=== PATIENT | female | born 1930 | race Caucasian/White ===

== ENCOUNTER 2019-08-26 08:21 | Inpatient (IN) ==
--- NOTE | 2019-08-26 08:47 | Emergency Department Note ---
Impression & Plan Weakness, Acute dyspnea, Transaminitis, Elevated troponin, Thrombocytopenia ED Provider Note Provider: Isai High MD DATE OF SERVICE: 08/26/2019 CHIEF COMPLAINT: Weakness, shortness of breath HISTORY OF PRESENT ILLNESS: Patient is a 89-year-old female with a reported history of diabetes, chronic kidney disease, and cardiac valve issue presenting via helicopter from the scene in [place]. Patient was evidently they are camping with daughter and son-in-law at a family cabin. Evidently for the past several days she has been more fatigued maybe with some shortness of breath and not quite herself. Some mild ground-level fall is reported; the patient states that she was weak getting out of bed this morning and fell to the ground. She is unsure if she struck her head. Reports she may have had several other falls but unable to give specifics. Patient also does reportedly have a history of some dementia. Report of nausea. Evidently at the scene the patient was hypoxic requiring nonrebreather. Brought via helicopter to the remoteness of the area. Patient doing all extremities and denies focal weakness. States some nausea and maybe a little bit of vague abdominal discomfort but unable to give specifics. States she has had a bit of cough little bit short of breath last several days but denies sick contact. Travel within the state. REVIEW OF SYSTEMS: A total of 10 review of systems was obtained and negative except as stated above in the HPI. PAST MEDICAL HISTORY: As noted above MEDICATIONS: Reviewed medication listings and includes SOCIAL HISTORY: Lives with daughter and son-in-law in [place], non-smoker PHYSICAL EXAM: GENERAL: alert and oriented in no acute distress on stretcher Head: normocephalic and atraumatic EYES: No injection, discharge or icterus. PERRL NECK: Trachea midline. Supple. ENT: Mucous membranes pink and moist. LUNGS: Airway patent. No retractions. Breath sounds clear with diminished base HEART: Regular rate and rhythm. No chest wall tenderness ABDOMEN: Soft and non-tender, without guarding or rebound. No masses BACK: No bilateral flank tenderness. SKIN: Acyanotic, warm, dry, without rashes EXTREMITIES: Without obvious deformity or significant tenderness. A few small healed abrasions on the bilateral shins are noted. No evidence of erythema. Trace pedal edema NEUROLOGICAL: No focal deficits. No aphasia. No facial droop or slurred speech. EKG: Normal sinus rhythm [address]pm. No PVC. No ST segment elevation or depression. Left axis. QTC of 496. CONTINUOUS CARDIAC MONITORING: was ordered and showed a heart rate of 82 bpm in normal sinus rhythm Patient's hypertension was referred to the hospitalist PDMP was checked without noted issue. GCS 15. HOSPITAL COURSE: 819 Patient was first seen and H&P performed. Received report from [employer] crew. [id number] Patient reassessed and updated. Patient was resting in bed and arousable with light touch. Contact precautions maintained. Updated the patient on findings and plan for admission for further care and management. She denies any chest pain at this time. Will order a dose of aspirin. Patient's laboratory studies and imaging reviewed. Differential includes Infection, dehydration, metabolic abnormality, hypo/hyperglycemia, electrolyte disturbance, anemia, hypoxia, cardiac sources, intracerebral event, toxicologic, neurologic, as well as other pathologies. IMPRESSION/MEDICAL DECISION MAKING: Patient presents with report of some weakness and report of shortness of breath at the scene. On room air here in no obvious distress. No focality exam and lower suspicion for acute CVA. Some report of fall or falls. Patient is not the best historian. Given this CT of the head and neck was obtained given the complaint of some nausea and may be some vague abdominal discomfort CT the abdomen pelvis is obtained as well as a CT of the chest. Patient does have chronic kidney disease and elevated creatinine and a noncontrast scan was obtai yulia. Basic labs were obtained as well as lactate and culture. Coronavirus testing was sent. With mild anemia and some leukopenia noted. Thrombocytopenia also noted. Creatinine of 1.88 noted unsure of baseline but could be consistent with her CKD. LFTs are elevated as well as the LDH. Urine without evidence of blood or signs of infection. CT the head without acute intracranial bleed or traumatic injury. CT of the cervical spine without acute traumatic injury. Chest x-ray question subacute versus chronic right-sided rib fractures. Troponin is mildly elevated unsure of chronic or related to demand. CT of the abdomen pelvis and chest with noting's of old remote right-sided rib fractures without acute traumatic injury. Some right renal atrophy moderate hydronephrosis and possible renal lesion. I informed the patient of this. Did note also on the CT of the chest no acute traumatic process with old healed rib fractures and a 1 cm irregular density in the right upper lobe. Patient about 90% on room air but placed on 2 L for comfort.respiratory distress. Resting in the room. Laboratory studies do show an elevated LDH but no evidence of pancreatitis. No significant bilirubin elevation. Doubt this is an obstructive transaminitis. Discussed with the patient updated her recommendation for admission which she was in agreement with. Still not been able to locate contact information for family at this time. Rapid COVID testing did return negative. Patient was given aspirin here and will avoid no believe further heparinization is indicated time especially in light of her thrombocytopenia. Do not see a clear infectious will defer further antibiotics to the inpatient team. DIAGNOSIS: Weakness, fall, elevated troponin, transaminitis, shortness of breath DISPOSITION: Admission Patient was agreeable with this plan. Past Med/Surg History Medical History (Updated 08/26/19 @ 14:26 by Isai High M.D.) Aortic valve stenosis Chronic pain syndrome CKD (chronic kidney disease) stage 3, GFR 30-59 ml/min Dementia Depression DJD (degenerative joint disease) GERD (gastroesophageal reflux disease) History of kidney stones HLD (hyperlipidemia) HTN (hypertension) NAFLD (nonalcoholic fatty liver disease) reported per PCP Office Neuropathy due to type 2 diabetes mellitus T2DM (type 2 diabetes mellitus) Surgical History (Updated 08/26/19 @ 13:01 by Riya Pringle PA-C) History of appendectomy History of breast biopsy History of hysterectomy History of shoulder replacement 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 Gavino Cochran Family History (Updated 08/26/19 @ 13:02 by Riya Pringle PA-C) Mother Diabetes Kidney disease Brother Lung cancer Sister Breast cancer Daughter Cancer Renal cell CA Son Cancer Renal Cell CA Social History Preferred Language: Pashto Communication Ability: Effective Case Sealer Required: No Beliefs That Will Affect Care: None Current Living Situation: Family Other Information That Helps Us Care for You: No Feels Safe at Home: Yes Safety Concerns: Feels Safe At This Time Smoking Status: Never smoker Hx Alcohol Use: No Hx Substance Use: No Home Meds Home Medications Medication Instructions Recorded Confirmed amlodipine 10 mg PO DAILY 08/26/19 08/26/19 aspirin 81 mg PO DAILY 08/26/19 08/26/19 atorvastatin 40 mg PO DAILY 08/26/19 08/26/19 carboxymethylcellulose sodium 1 drp OPHTHALMIC (EYE) QID 08/26/19 08/26/19 [Refresh Tears] celecoxib 200 mg PO DAILY 08/26/19 08/26/19 donepezil 10 mg PO DAILY 08/26/19 08/26/19 gabapentin 600 mg PO TID 08/26/19 08/26/19 hydrocodone-acetaminophen 1 tab PO DAILY 08/26/19 08/26/19 lorazepam 0.5 mg PO DAILY 08/26/19 08/26/19 magnesium oxide 400 mg PO DAILY 08/26/19 08/26/19 olmesartan 20 mg PO DAILY 08/26/19 08/26/19 omeprazole 10 mg PO DAILY 08/26/19 08/26/19 sertraline 150 mg PO DAILY 08/26/19 08/26/19 sitagliptin 100 mg PO DAILY 08/26/19 08/26/19 Results & Data (ED) Vital Signs Vital Signs - 24 hr 08/26/19 08:38 08/26/19 08:53 08/26/19 10:53 Temperature 37.4 C Temperature Source Oral Pulse Rate 80 Pulse Rate [Apical] 79 Respiratory Rate 18 18 Blood Pressure 132/67 Blood Pressure [Left Arm] 159/72 H Blood Pressure Mean 88 Blood Pressure Mean [Left Arm] 101 Pulse Oximetry 90 90 100 Oxygen Delivery Method Room Air Room Air Nasal Cannula Oxygen Flow Rate 2 Sepsis Recent Fever Within 48 Hours Yes Sepsis New/Unexplained Change in Mental Status No Sepsis Action Taken by Nursing No Action Required 08/26/19 12:00 08/26/19 14:00 Temperature Temperature Source Pulse Rate Pulse Rate [Apical] 70 72 Respiratory Rate 18 18 Blood Pressure Blood Pressure [Left Arm] 155/81 H 163/79 H Blood Pressure Mean Blood Pressure Mean [Left Arm] 105 107 Pulse Oximetry 100 97 Oxygen Delivery Method Nasal Cannula Nasal Cannula Oxygen Flow Rate 2 2 Sepsis Recent Fever Within 48 Hours Sepsis New/Unexplained Change in Mental Status Sepsis Action Taken by Nursing Laboratory Data Result diagrams: 08/26/19 08:35 08/26/19 08:35 Lab Results 08/26/19 08/26/19 08/26/19 Range/Units 08:35 08:35 08:35 WBC 3.00 L (4.8-10.8) K/uL RBC 4.12 L (4.2-5.4) M/uL Hgb 11.2 L (12.0-16.0) g/dL POC Hgb (12.0-16.0) g/dl Hct 33.9 L (37-47) % POC Hct (37-47) % MCV 82.3 (80-100) fL MCH 27.2 (25-34) pg MCHC 33.0 (32-36) g/dL RDW Std Deviation 43.2 (36.4-46.3) fL RDW Coeff of Mary 14.4 (11.5-14.5) % Plt Count 87 L (130-400) K/uL MPV 8.8 (7.4-10.4) fL Immature Gran % (Auto) 1.3 % Neut % (Auto) 81.7 % Lymph % (Auto) 7.7 % Coles % (Auto) 8.3 % Eos % (Auto) 0.3 % Baso % (Auto) 0.7 % Immature Gran # (Auto) 0.04 H (0.00-0.02) K/uL Neut # (Auto) 2.45 (1.4-6.5) K/uL Lymph # (Auto) 0.23 L (1.2-3.4) K/uL Coles # (Auto) 0.25 (0.11-0.59) K/uL Eos # (Auto) 0.01 (0-0.5) K/uL Baso # (Auto) 0.02 (0-0.2) K/uL Platelet Estimate Decreased L (Normal) PT 11.5 (9.0-12.0) Seconds INR 1.1 (0.9-1.1) POC Sodium (135-144) mmol/L Sodium 135 L (136-145) mmol/L POC Potassium (3.3-5.0) mmol/L Potassium 3.9 (3.5-5.1) mmol/L POC Chloride (101-112) mmol/L Chloride 102 (98-107) mmol/L Carbon Dioxide 25 (21-32) mmol/L POC Total CO2 (24-31) mmol/L Anion Gap 7.0 (3-11) POC Anion Gap (16-25) mmol/L POC BUN (7-18) mg/dl BUN 26 H (7-18) mg/dl Creatinine 1.88 H (0.6-1.2) mg/dl POC Creatinine (0.6-1.3) mg/dl Est Cr Clr Drug Dosing 22.4 ml/min Est GFR ( Amer) 27.0 Est GFR (Non-Af Amer) 23.3 BUN/Creatinine Ratio 13.6 (10-20) Glucose 212 H (70-99) mg/dl POC Glucose (other) (70-99) mg/dl Lactate (0.4-2.0) mmol/L Calcium 8.4 L (8.5-10.1) mg/dl POC Ioniz Calcium Mica (1.12-1.32) mmol/l Magnesium 1.8 (1.8-2.4) mg/dl Ferritin 127.6 (8-388) ng/ml Total Bilirubin 1.2 H (0.2-1) mg/dl AST 983 H (15-37) U/L ALT 694 H (12-78) U/L Alkaline Phosphatase 165 H (45-117) U/L Lactate Dehydrogenase (84-246) U/L Total Creatine Kinase (26-192) U/L Troponin I 0.075 H* (0-0.045) ng/ml Total Protein 6.9 (6.4-8.2) gm/dl Albumin 2.8 L (3.4-5.0) gm/dl Globulin 4.1 H (2.5-4.0) gm/dl Albumin/Globulin Ratio 0.7 L (0.9-2) Lipase 233 (73-393) U/L TSH 1.380 (0.300-4.500) uIu/ml Urine Color Urine Appearance (Clear) Urine pH (4.5-7.5) Ur Specific [place] (1.000-1.030) Urine Protein (Negative) Urine Glucose (UA) (Negative) Urine Ketones (Negative) Urine Blood (Negative) Urine Nitrite (Negative) Urine Bilirubin (Negative) Urine Urobilinogen (Negative) Ur Leukocyte Esterase (Negative) Urine WBC (Auto) (0-5) /hpf Urine RBC (Auto) (0-4) /hpf U Hyaline Cast (Auto) (0-5) /lpf U Epithel Cells (Auto) (0-5) /lpf Urine Bacteria (Auto) (Negative) COVID-19 PCR (Negative) SARS-CoV-2 RNA (RT-PCR) 08/26/19 08/26/19 08/26/19 Range/Units 08:35 08:35 08:35 WBC (4.8-10.8) K/uL RBC (4.2-5.4) M/uL Hgb (12.0-16.0) g/dL POC Hgb (12.0-16.0) g/dl Hct (37-47) % POC Hct (37-47) % MCV (80-100) fL MCH (25-34) pg MCHC (32-36) g/dL RDW Std Deviation (36.4-46.3) fL RDW Coeff of Mary (11.5-14.5) % Plt Count (130-400) K/uL MPV (7.4-10.4) fL Immature Gran % (Auto) % Neut % (Auto) % Lymph % (Auto) % Coles % (Auto) % Eos % (Auto) % Baso % (Auto) % Immature Gran # (Auto) (0.00-0.02) K/uL Neut # (Auto) (1.4-6.5) K/uL Lymph # (Auto) (1.2-3.4) K/uL Coles # (Auto) (0.11-0.59) K/uL Eos # (Auto) (0-0.5) K/uL Baso # (Auto) (0-0.2) K/uL Platelet Estimate (Normal) PT (9.0-12.0) Seconds INR (0.9-1.1) POC Sodium (135-144) mmol/L Sodium (136-145) mmol/L POC Potassium (3.3-5.0) mmol/L Potassium (3.5-5.1) mmol/L POC Chloride (101-112) mmol/L Chloride (98-107) mmol/L Carbon Dioxide (21-32) mmol/L POC Total CO2 (24-31) mmol/L Anion Gap (3-11) POC Anion Gap (16-25) mmol/L POC BUN (7-18) mg/dl BUN (7-18) mg/dl Creatinine (0.6-1.2) mg/dl POC Creatinine (0.6-1.3) mg/dl Est Cr Clr Drug Dosing ml/min Est GFR ( Amer) Est GFR (Non-Af Amer) BUN/Creatinine Ratio (10-20) Glucose (70-99) mg/dl POC Glucose (other) (70-99) mg/dl Lactate 0.9 (0.4-2.0) mmol/L Calcium (8.5-10.1) mg/dl POC Ioniz Calcium Mica (1.12-1.32) mmol/l Magnesium (1.8-2.4) mg/dl Ferritin (8-388) ng/ml Total Bilirubin (0.2-1) mg/dl AST (15-37) U/L ALT (12-78) U/L Alkaline Phosphatase (45-117) U/L Lactate Dehydrogenase 1295 H (84-246) U/L Total Creatine Kinase 99 (26-192) U/L Troponin I (0-0.045) ng/ml Total Protein (6.4-8.2) gm/dl Albumin (3.4-5.0) gm/dl Globulin (2.5-4.0) gm/dl Albumin/Globulin Ratio (0.9-2) Lipase (73-393) U/L TSH (0.300-4.500) uIu/ml Urine Color Urine Appearance (Clear) Urine pH (4.5-7.5) Ur Specific [place] (1.000-1.030) Urine Protein (Negative) Urine Glucose (UA) (Negative) Urine Ketones (Negative) Urine Blood (Negative) Urine Nitrite (Negative) Urine Bilirubin (Negative) Urine Urobilinogen (Negative) Ur Leukocyte Esterase (Negative) Urine WBC (Auto) (0-5) /hpf Urine RBC (Auto) (0-4) /hpf U Hyaline Cast (Auto) (0-5) /lpf U Epithel Cells (Auto) (0-5) /lpf Urine Bacteria (Auto) (Negative) COVID-19 PCR (Negative) SARS-CoV-2 RNA (RT-PCR) 08/26/19 08/26/19 08/26/19 Range/Units 08:37 08:45 08:45 WBC (4.8-10.8) K/uL RBC (4.2-5.4) M/uL Hgb (12.0-16.0) g/dL POC Hgb 11.9 L (12.0-16.0) g/dl Hct (37-47) % POC Hct 35 L (37-47) % MCV (80-100) fL MCH (25-34) pg MCHC (32-36) g/dL RDW Std Deviation (36.4-46.3) fL RDW Coeff of Mary (11.5-14.5) % Plt Count (130-400) K/uL MPV (7.4-10.4) fL Immature Gran % (Auto) % Neut % (Auto) % Lymph % (Auto) % Coles % (Auto) % Eos % (Auto) % Baso % (Auto) % Immature Gran # (Auto) (0.00-0.02) K/uL Neut # (Auto) (1.4-6.5) K/uL Lymph # (Auto) (1.2-3.4) K/uL Coles # (Auto) (0.11-0.59) K/uL Eos # (Auto) (0-0.5) K/uL Baso # (Auto) (0-0.2) K/uL Platelet Estimate (Normal) PT (9.0-12.0) Seconds INR (0.9-1.1) POC Sodium 135 (135-144) mmol/L Sodium (136-145) mmol/L POC Potassium 4.0 (3.3-5.0) mmol/L Potassium (3.5-5.1) mmol/L POC Chloride 100 L (101-112) mmol/L Chloride (98-107) mmol/L Carbon Dioxide (21-32) mmol/L POC Total CO2 23 L (24-31) mmol/L Anion Gap (3-11) POC Anion Gap 17.0 (16-25) mmol/L POC BUN 24 H (7-18) mg/dl BUN (7-18) mg/dl Creatinine (0.6-1.2) mg/dl POC Creatinine 1.7 H (0.6-1.3) mg/dl Est Cr Clr Drug Dosing ml/min Est GFR ( Amer) Est GFR (Non-Af Amer) BUN/Creatinine Ratio (10-20) Glucose (70-99) mg/dl POC Glucose (other) 224 H (70-99) mg/dl Lactate (0.4-2.0) mmol/L Calcium (8.5-10.1) mg/dl POC Ioniz Calcium Mica 1.18 (1.12-1.32) mmol/l Magnesium (1.8-2.4) mg/dl Ferritin (8-388) ng/ml Total Bilirubin (0.2-1) mg/dl AST (15-37) U/L ALT (12-78) U/L Alkaline Phosphatase (45-117) U/L Lactate Dehydrogenase (84-246) U/L Total Creatine Kinase (26-192) U/L Troponin I (0-0.045) ng/ml Total Protein (6.4-8.2) gm/dl Albumin (3.4-5.0) gm/dl Globulin (2.5-4.0) gm/dl Albumin/Globulin Ratio (0.9-2) Lipase (73-393) U/L TSH (0.300-4.500) uIu/ml Urine Color Yellow Urine Appearance Clear (Clear) Urine pH 5.5 (4.5-7.5) Ur Specific [place] 1.019 (1.000-1.030) Urine Protein 3+ H (Negative) Urine Glucose (UA) Negative (Negative) Urine Ketones Negative (Negative) Urine Blood Negative (Negative) Urine Nitrite Negative (Negative) Urine Bilirubin Negative (Negative) Urine Urobilinogen Negative (Negative) Ur Leukocyte Esterase Negative (Negative) Urine WBC (Auto) 1-5 (0-5) /hpf Urine RBC (Auto) 0-4 (0-4) /hpf U Hyaline Cast (Auto) 1-5 (0-5) /lpf U Epithel Cells (Auto) 20-30 H (0-5) /lpf Urine Bacteria (Auto) Negative (Negative) COVID-19 PCR (Negative) SARS-CoV-2 RNA (RT-PCR) Cancelled 08/26/19 Range/Units 08:45 WBC (4.8-10.8) K/uL RBC (4.2-5.4) M/uL Hgb (12.0-16.0) g/dL POC Hgb (12.0-16.0) g/dl Hct (37-47) % POC Hct (37-47) % MCV (80-100) fL MCH (25-34) pg MCHC (32-36) g/dL RDW Std Deviation (36.4-46.3) fL RDW Coeff of Mary (11.5-14.5) % Plt Count (130-400) K/uL MPV (7.4-10.4) fL Immature Gran % (Auto) % Neut % (Auto) % Lymph % (Auto) % Coles % (Auto) % Eos % (Auto) % Baso % (Auto) % Immature Gran # (Auto) (0.00-0.02) K/uL Neut # (Auto) (1.4-6.5) K/uL Lymph # (Auto) (1.2-3.4) K/uL Coles # (Auto) (0.11-0.59) K/uL Eos # (Auto) (0-0.5) K/uL Baso # (Auto) (0-0.2) K/uL Platelet Estimate (Normal) PT (9.0-12.0) Seconds INR (0.9-1.1) POC Sodium (135-144) mmol/L Sodium (136-145) mmol/L POC Potassium (3.3-5.0) mmol/L Potassium (3.5-5.1) mmol/L POC Chloride (101-112) mmol/L Chloride (98-107) mmol/L Carbon Dioxide (21-32) mmol/L POC Total CO2 (24-31) mmol/L Anion Gap (3-11) POC Anion Gap (16-25) mmol/L POC BUN (7-18) mg/dl BUN (7-18) mg/dl Creatinine (0.6-1.2) mg/dl POC Creatinine (0.6-1.3) mg/dl Est Cr Clr Drug Dosing ml/min Est GFR ( Amer) Est GFR (Non-Af Amer) BUN/Creatinine Ratio (10-20) Glucose (70-99) mg/dl POC Glucose (other) (70-99) mg/dl Lactate (0.4-2.0) mmol/L Calcium (8.5-10.1) mg/dl POC Ioniz Calcium Mica (1.12-1.32) mmol/l Magnesium (1.8-2.4) mg/dl Ferritin (8-388) ng/ml Total Bilirubin (0.2-1) mg/dl AST (15-37) U/L ALT (12-78) U/L Alkaline Phosphatase (45-117) U/L Lactate Dehydrogenase (84-246) U/L Total Creatine Kinase (26-192) U/L Troponin I (0-0.045) ng/ml Total Protein (6.4-8.2) gm/dl Albumin (3.4-5.0) gm/dl Globulin (2.5-4.0) gm/dl Albumin/Globulin Ratio (0.9-2) Lipase (73-393) U/L TSH (0.300-4.500) uIu/ml Urine Color Urine Appearance (Clear) Urine pH (4.5-7.5) Ur Specific [place] (1.000-1.030) Urine Protein (Negative) Urine Glucose (UA) (Negative) Urine Ketones (Negative) Urine Blood (Negative) Urine Nitrite (Negative) Urine Bilirubin (Negative) Urine Urobilinogen (Negative) Ur Leukocyte Esterase (Negative) Urine WBC (Auto) (0-5) /hpf Urine RBC (Auto) (0-4) /hpf U Hyaline Cast (Auto) (0-5) /lpf U Epithel Cells (Auto) (0-5) /lpf Urine Bacteria (Auto) (Negative) COVID-19 PCR NEGATIVE (Negative) SARS-CoV-2 RNA (RT-PCR) Administered Medications Discontinued Medications Aspirin (Aspirin) 324 mg PO NOW STA Stop: 08/26/19 10:10 Last Admin: 08/26/19 11:33 Dose: 324 mg Documented by: [id number] Discharge Plan Visit Data Chief Complaint: Illness Stated Complaint: sob/weakness ED Provider: Isai High Discharge Problem: Weakness, Acute dyspnea, Transaminitis, Elevated troponin, Thrombocytopenia Forms Stand Alone Forms: My [facility] Prescriptions Prescriptions: No Action sitagliptin 100 mg Tablet 100 mg PO DAILY RF: 0 gabapentin 600 mg Tablet 600 mg PO TID RF: 0 celecoxib 200 mg Capsule 200 mg PO DAILY RF: 0 hydrocodone-acetaminophen 5-300 mg Tablet 1 tab PO DAILY RF: 0 lorazepam 1 mg Tablet 0.5 mg PO DAILY RF: 0 donepezil 10 mg Tablet 10 mg PO DAILY RF: 0 sertraline 100 mg Tablet 150 mg PO DAILY RF: 0 amlodipine 5 mg Tablet 10 mg PO DAILY RF: 0 atorvastatin 40 mg Tablet 40 mg PO DAILY RF: 0 omeprazole 10 mg capsule,delayed release(DR/EC) 10 mg PO DAILY RF: 0 magnesium oxide 400 mg magnesium tablet 400 mg PO DAILY RF: 0 aspirin 81 mg Tablet,Delayed Release (Dr/Ec) 81 mg PO DAILY RF: 0 Refresh Tears 0.5 % Drops 1 drp OPHTHALMIC (EYE) QID RF: 0 olmesartan 40 mg tablet 20 mg PO DAILY RF: 0
[2019-08-26 08:50] LABS: iSTAT Creatinine 1.7 mg/dl (0.6-1.3); iSTAT Hemoglobin 11.9 g/dl (12.0-16.0); iSTAT Ionized Calcium 1.18 mmol/l (1.12-1.32)
[2019-08-26 08:59] LABS: INR 1.1 (0.9-1.1); Prothrombin Time 11.5 Seconds (9.0-12.0)
[2019-08-26 09:02] LABS: Appearance Urine Clear (Clear); Bacteria Urine Automated Negative (Negative); Bilirubin Urine Negative (Negative); Blood Urine Negative (Negative); Color Urine Yellow; Epithelial Cell Urine Auto 20-30 /lpf (0-5); Glucose Urine UA Negative (Negative); Ketones Urine Negative (Negative); Leukocyte Esterase Urine Negative (Negative); Nitrite Urine Negative (Negative); Protein Urine 3+ (Negative); RBC Urine Automated 0-4 /hpf (0-4); Specific Gravity Urine 1.019 (1.000-1.030); Urobilinogen Urine Negative (Negative); pH Urine 5.5 (4.5-7.5)
[2019-08-26 09:05] LABS: Albumin Level 2.8 gm/dl (3.4-5.0); BUN Creatinine Ratio 13.6 (10-20); Calcium 8.4 mg/dl (8.5-10.1); Creatinine Clr Calc Pharmacy 22.4 ml/min; Est GFR (Non-African American) 23.3; Magnesium 1.8 mg/dl (1.8-2.4); Potassium 3.9 mmol/L (3.5-5.1)
--- NOTE | 2019-08-26 09:05 | XRay Report ---
XR chest 1V portable HISTORY: 89 years-old Female weakness acute chest trauma status post fall. Acute weakness. COMPARISON: None TECHNIQUE: Portable AP view of the chest FINDINGS: Cardiac silhouette is enlarged. Aortic valvular endograft. Calcified plaque the thoracic aortic arch. Mild interstitial coarsening is likely on a chronic basis. No definite pneumothorax, pleural effusio n or overt pulmonary edema. Right shoulder total joint arthroplasty. Degenerative changes of the left shoulder and spine. There are multiple right-sided rib fractures notably involving the posterolatera l right fifth through ninth ribs which appear to be subacute versus chronic. IMPRESSION: 1. Cardiomegaly without acute process. 2. Multiple subacute or chronic right-sided rib fractures. ACT 112: Negative or not required by law. The above report was generated using voice recognition software. It may contain grammatical, syntax o r spelling errors. Electronically signed by: Bud Gusman M.D. 08/26/2019 9:04 AM
[2019-08-26 09:11] LABS: Basophils # (auto) 0.02 K/uL (0-0.2); Basophils % (auto) 0.7 %; Eosinophils # (auto) 0.01 K/uL (0-0.5); Eosinophils % (auto) 0.3 %; Hematocrit (blood only) 33.9 % (37-47); Hemoglobin 11.2 g/dL (12.0-16.0); Immature Granulocytes # (auto) 0.04 K/uL (0.00-0.02); Immature Granulocytes % (auto) 1.3 %; Lymphocytes # (auto) 0.23 K/uL (1.2-3.4); Lymphocytes % (auto) 7.7 %; Mean Corpuscular Hemoglobin 27.2 pg (25-34); Mean Corpuscular Volume 82.3 fL (80-100); Mean Platelet Volume 8.8 fL (7.4-10.4); Monocytes # (auto) 0.25 K/uL (0.11-0.59); Monocytes % (auto) 8.3 %; Neutrophils # (auto) 2.45 K/uL (1.4-6.5); Neutrophils % (auto) 81.7 %; Platelet Count 87 K/uL (130-400); Platelet Estimate Decreased (Normal); RDW Coefficient of Variation 14.4 % (11.5-14.5); RDW Standard Deviation 43.2 fL (36.4-46.3); Red Blood Count 4.12 M/uL (4.2-5.4)
--- NOTE | 2019-08-26 09:22 | CT Scan Report ---
HEAD CT NONCONTRAST CT DOSE: 729.78 mGycm HISTORY: fall TECHNIQUE: Multiaxial CT images of the head were performed without the use of intravenous contrast. A utomated exposure control was utilized for this study. A dose lowering technique was utilized adheri ng to the principles of ALARA. Comparison: None. Findings: The paranasal sinuses and mastoid air cells are clear. The calvarium and skull base are int act. There is no mass, hematoma, midline shift, acute infarct. White matter hypodensity is nonspecifi c but suggestive of microvascular ischemic change. The ventricles and sulci demonstrate mild age-rela shivani involutional changes. Impression: No acute intracranial abnormality. Atrophy and microvascular ischemic changes. ACT 112: Negative or not required by law. Electronically signed by: Darci Sharma M.D. 08/26/2019 9:21 AM
--- NOTE | 2019-08-26 09:27 | CT Scan Report ---
CT OF THE CERVICAL SPINE CLINICAL HISTORY: Neck pain status post trauma COMPARISON STUDY: No previous studies for comparison. CT DOSE: 418.06 mGycm TECHNIQUE: CT scan of the cervical spine was performed from the skull base to the thoracic inlet. Winnie ges are reviewed in the axial, sagittal, and coronal planes. IV contrast was not administered for thi s examination. A dose lowering technique was utilized adhering to the principles of ALARA. FINDINGS: The visualized portions of the lung apices reveal no evidence of pneumothorax. The prevertebral soft tissues are normal. No fractures or traumatic subluxations are visualized. There are advanced multilevel degenerative changes. 3.4 mm of anterolisthesis of C3 on C4 is likely d egenerative. 3.4 mm of retrolisthesis of C5 on C6 is likely degenerative. 3.1 mm of retrolisthesis of C6 on C7 is likely degenerative. There is severe spinal stenosis at the C5-6 level. IMPRESSION: 1. No evidence of acute fracture or traumatic subluxation 2. Advanced multilevel degenerative changes with multilevel spinal stenosis which is severe at the C5 -C6 level. ACT 112: Negative or not required by law. Electronically signed by: Gilberto Diaz M.D. 08/26/2019 9:26 AM
[2019-08-26 09:28] LABS: Albumin Globulin Ratio 0.7 (0.9-2); Bilirubin,Total 1.2 mg/dl (0.2-1); Ferritin 127.6 ng/ml (8-388); Globulin 4.1 gm/dl (2.5-4.0); Thyroid Stimulating Hormone 1.38 uIu/ml (0.300-4.500); Total Protein 6.9 gm/dl (6.4-8.2); Troponin I 0.075 ng/ml (0-0.045)
--- NOTE | 2019-08-26 09:32 | CT Scan Report ---
CT chest wo con CT DOSE: 513.95 mGycm HISTORY: fall TECHNIQUE: Multiaxial CT images of the chest were performed without contrast. A dose lowering techni que was utilized adhering to the principles of ALARA. COMPARISON: None. FINDINGS: Multiple old, healed right posterior rib fractures. No acute fractures identified within th e chest. There is a right total shoulder arthroplasty. Please refer to the same day abdomen and pelvi s CT for further evaluation of the abdominal structures. The spleen appears enlarged. No pleural or p ericardial effusions. Mild left basilar pleural thickening. No mediastinal or hilar lymphadenopathy. Normal caliber esophagus. Mild calcified plaque within the normal caliber thoracic aorta. There is a stent within the ascending thoracic aorta. The heart is mildly enlarged. No mediastinal hematoma. No pneumothorax. Punctate calcified granuloma within the left lung apex. Focal irregular density within the right upper lobe on image 68 which measures 1 cm. This could represent scarring or a pulmonary le ruiz. A few punctate calcified granuloma seen within the right lung. There are few scattered subcenti meter groundglass nodule seen within the right lung. Dominant groundglass nodule within the right low er lobe on image 153 measures 4 mm. IMPRESSION: 1. No acute traumatic process within the chest. 2. Old, healed right posterior rib fractures. 3. A focal 1 cm irregular density within the right upper lobe which could represent scarring or a pul monary lesion. A [address] follow-up recommended for further evaluation. 4. A few scattered subcentimeter groundglass nodule within the right lung with the largest measuring 4 mm. These also bear watching future examinations. 5. Additional findings as described above. ACT 112: Negative or not required by law. Electronically signed by: Darci Sharma M.D. 08/26/2019 9:31 AM
--- NOTE | 2019-08-26 09:37 | CT Scan Report ---
ABDOMEN AND PELVIS CT WITHOUT CONTRAST CT DOSE: 932.38 mGycm HISTORY: Acute generalized abdominal pain status post fall. Acute nausea. fall, nausea TECHNIQUE: Multiaxial CT images of the abdomen and pelvis were performed without contrast. A dose lo wering technique was utilized adhering to the principles of ALARA. COMPARISON STUDY: Chest CT of same day FINDINGS: Trace pleural effusions. Minimal bibasilar pleural calcifications. Minimal bibasilar dependent atelec tasis. No pneumatosis or pneumoperitoneum. Mitral annular and coronary arterial calcifications. Cardi omegaly. Partially imaged aortic valvular endograft. Spleen is enlarged measuring up to 14.7 cm. Mode rate generalized pancreatic atrophy. Cholecystectomy is likely postsurgical intrahepatic and extrahep atic biliary ductal dilation. Unremarkable appearance of the adrenal glands. Scattered calcified gran ulomata throughout the liver. Moderate atrophy of the right kidney with associated perinephric stranding. Moderate dilation of the renal collecting system and renal pelvis. Urothelial thickening of the renal pelvis is noted with jennifer ris and a partially calcified lesion which measures up to approximately 3.2 x 2.3 x 3.4 cm. Man cat heter noted within a decompressed urinary bladder lumen. Extensive calcified plaque the abdominal aor ta. Nonspecific periportal adenopathy. Mild nonspecific distal esophageal wall thickening. No bowel obstruction. Colonic diverticulosis with out acute diverticulitis. Mild fecal retention. Nonvisualization of the appendix. Tiny fat filled per iumbilical hernia. Tiny right lateral lower abdominal wall fat filled hernia is noted with diastases 1.2 cm. Degenerative changes of the spine, pelvis and hips. Healing subacute versus chronic right-ivan ed rib fractures. No acute fracture identified. Lumbar levoscoliosis. IMPRESSION: 1. No acute posttraumatic abnormality identified within the abdomen or pelvis. 2. No acute fracture. Multiple remote right-sided rib fractures are noted. 3. Moderate right-sided renal atrophy and moderate hydronephrosis is noted along with a partially maddie cified heterogeneous lesion centered within the renal pelvis. Debris within the renal pelvis is noted along with associated urothelial thickening. Findings are suggestive of a urothelial lesion and foll ow-up with urology consultation is needed. 4. Trace pleural effusions. 5. Splenomegaly. 6. Additional findings as above. ACT 112: Negative or not required by law. The above report was generated using voice recognition software. It may contain grammatical, syntax o r spelling errors. Electronically signed by: Bud Gusman M.D. 08/26/2019 9:36 AM
[2019-08-26] MEDS ORDERED: ASPIRIN CHEW 324 MG PO STA (10:09)
--- NOTE | 2019-08-26 12:31 | Communication Note ---
Date of Service: August 26, 2019 History and physical exam obtained by me. History significant for 89-year-old woman with CKD 3, DM 2, dementia, hypertension who presented with worsening generalized weakness for the past 2 days. History obtained from patient and daughter was at bedside. Family had been out in the cabin for about 1 week Also reported nausea, reduced urinary output, fever this morning and some shortness of breath. Notable history of worsening weakness over the past few months with falls FSH - Multiple family members that of different cancers. Physical exam, General: Elderly woman, alert, appears weak Eyes: PERRL, conjunctivae normal, not pale, anicteric sclerae, EOM intact bilaterally ENMT: External ear and nose normal, oropharynx normal Neck: Normal visual inspection, no swelling noted Respiratory: Normal respiratory effort, no respiratory distress, lungs clear to auscultation, no crackles and no wheezes Cardiovascular: Pulse is RRR. S1-2, no pedal edema Chest (Breasts): Chest: normal inspection of chest, mild tenderness over palpation of right lower rib cage and RUQ Gastrointestinal (Abdomen): Abdomen is not distended, soft, mild tenderness over RUQ and lower rib cage (likely related to previous rib fractures as patient reported she has been having the pain since her fall and rib fractures), no guarding, normal bowel sounds Musculoskeletal: No cyanosis or clubbing, no pedal edema Genitourinary: No CVA tenderness Skin: Some scab on right side of forehead (daughter reports patient usually picks on her skin) Neurologic: Alert and oriented to person, place and month, No focal weakness, sensation grossly intact, power is about 5/5 in both UE and 4/5 in both LE Psychiatric: Euthymic affect, no depressed affect Labs notable for WBC of 3, Hb of 11.2, Plt 87, Na of 135, Cr of 1.88, AST of 983, ALT 694, Alk P 165, LDH 1295, Trop 0.075 CXR show multiple subacute and chronic right sided rib fractures Abd/Pelvis CT show Moderate Rigth renal atrophy, mod hydronephrosis, 3.2x2.3x3.4cm lesion. Scattered calcified granulomata throughout the liver CT chest showed few scattered groundglass nodules in right lung, focal 1cm irregular density in RUL (?scarring) -Transaminitis -Thrombocytopenia -Fever, Shortness of breath -SABINE on CKD3 -Right renal lesion -Ambulatory dysfunction -Elevated troponin Elevated liver enzymes. Get RUQ [facility] consult Monitor liver enzymes Hold home atorvastatin for now Fever reported and shortness of breath Differentials also include Possible Community acquired pneumonia, rule out Tick borne illness. COVID19 negative Get blood cultures Start ceftriaxone and doxycycline Get Tick borne testing for lyme, anaplasma Concern for possible malignancy considering history and findings Get urology consult for evaluation of renal mass Will benefit from tissue diagnosis Elevated troponin. EKG does not show any ischemic changes. Will trend trop. Monitor EKG Telemetry monitoring Monitor SABINE on CKD with IVF Get records from PCP PT/OT eval Other plans as detailed in note by Riya Pringle PA-C
--- NOTE | 2019-08-26 12:51 | History & Physical Report ---
Date of Service August 26, 2019 Assessment & Plan (1) Acute hepatitis: (2) Fever: (3) SOB (shortness of breath): (4) Weakness: (5) Recurrent falls: (6) Thrombocytopenia: Patient with acute hepatitis on admission for unknown reason. INR 1.1. Lactic acid within norm. CK within norm. Patient was [place] a cabin and also lives in the [facility]. Tick Borne illness is on the differential, but very high LFTs for tick borne illness. Ordered tick borne panel. Start Doxy prophylactically pending Lyme, etc. Check Hepatitis panel. Recheck LFTs in AM. Continue to follow Platelets and H&H. Splenomegaly noted on CT Abd/Pelvis. Consult GI. RUQ US to further assess liver. Check Acetaminophen level. Blood cultures ordered. Fall precautions. PT/OT Hold atorvastatin for now. (7) Svgyz-gv-mevjhcr kidney injury: Patient with CKD III historically. Creatinine slightly worse than baseline. 1.5--> 1.88 today. Gentle IV Hydration. Continue to monitor I&Os. Possibly due to current illness. Check Urine culture. Hold Celebrex- feel that this likely should be discontinued on discharge. (8) Lesion of right [place] kidney: Strong family history of Renal Cell CA. Consult Urology for opinion regarding follow up. (9) Pulmonary lesion: (10) Ground glass opacity present on imaging of lung: Patient does not have history of tobacco use. Uncertain etiology of pulmonary 1 cm lesion. With ground glass opacity, fever, weakness, and SOB, will start IV CTX prophylactically as well for possible CAP. COVID negative. Continue PRN O2 to maintain SaO2 >88%. (11) Troponin level elevated: Possibly due to demand from other processes. Will trend and repeat EKG in AM. (12) T2DM (type 2 diabetes mellitus): Hold sitagliptin. Insulin protocol. (13) HTN (hypertension): Hold Olmesartan. Continue amlodipine. (14) Dementia: (15) GERD (gastroesophageal reflux disease): Continue omeprazole. (16) Cervical stenosis of spinal canal: Seems unlikely to be causing current symptoms. Follow up as needed as outpatient. Patient's daughter, Jonelle is ISAIAS. Phone number is [phone]. History of Present Illness Chief Complaint: SOB, weakness Primary Care Provider: NO PCP Patient is an 89 yo female with history of DM Type II, HTN, Dyslipidemia, CKD III, Nonalcoholic fatty liver disease, dementia, chronic pain syndrome, DM Neuropathy, GERD, and history of renal stone 2 years ago who presented to the ED via [facility] with SOB and weakness. She had a fall in February during which she broke 5 ribs. She was undergoing PT after that to help improve her strength. This was put on hold during COVID. Over the past 2 months, she has been progressively becoming more weak, but her daughter states that she has become incredibly weak over the past 24-48 hours. She was unable to get out of bed and fell x 2. She has been in [facility] at a very small camp of her granddaughter's for about 1 week, and she was flown here because they were unable to get an ambulance back to the camp. She has not had any cough or SOB until the past 24 hours. The patient was placed on nonrebreather by EMS on the way to the hospital but the patient is currently saturating well on room air. The patient is currently comfortable. She did have a fever of 103 F per her daughter this morning prior to EMS arrival. She was given 2 Tylenol at home which did bring the fever down. The patient has no history of hepatitis or transaminase elevation from fatty liver disease. Her daughter also noted that she hadn't been urinating regularly over the past 24 hours- decreased urination. No hematuria. Patient had a mild headache this morning, but none now. She had mild dizziness associated with some nausea but none now. No dysphagia, chest pain, abdominal pain, V/D/C, rash, or peripheral edema. Since admission, the patient was noted to have severely elevated LFTs, thrombocytopenia, elevated LDH, negative COVID, groundglass opacities in the right lung, and possible calcific right renal lesion. Prior right rib fractures were noted on Chest/abdomen CT's, but no acute bony findings. Head CT was negative for acute findings. C spine CT showed spinal stenosis and DDD. Troponin was mildly elevated, but no acute EKG changes suggesting ischemia. Last outpatient lab testing done 04/30/19 showed AST 9, ALT 6, Alk Phos 60, Platelets 197, Hgb 12.2, A1C 7.6, Creatinine 1.5. Allergies Allergy/AdvReac Type Severity Reaction Status Date / Time No Known Allergies Allergy Verified 08/26/19 16:55 Home Medications Home Medications Medication Instructions Recorded Confirmed Type amlodipine 10 mg PO DAILY 08/26/19 08/26/19 History aspirin 81 mg PO DAILY 08/26/19 08/26/19 History atorvastatin 40 mg PO DAILY 08/26/19 08/26/19 History carboxymethylcellulose sodium 1 drp OPHTHALMIC (EYE) QID 08/26/19 08/26/19 History [Refresh Tears] celecoxib 200 mg PO DAILY 08/26/19 08/26/19 History donepezil 10 mg PO DAILY 08/26/19 08/26/19 History gabapentin 600 mg PO TID 08/26/19 08/26/19 History hydrocodone-acetaminophen 1 tab PO DAILY 08/26/19 08/26/19 History lorazepam 0.5 mg PO DAILY 08/26/19 08/26/19 History magnesium oxide 400 mg PO DAILY 08/26/19 08/26/19 History olmesartan 20 mg PO DAILY 08/26/19 08/26/19 History omeprazole 10 mg PO DAILY 08/26/19 08/26/19 History sertraline 150 mg PO DAILY 08/26/19 08/26/19 History sitagliptin 100 mg PO DAILY 08/26/19 08/26/19 History Past Med/Surg History Medical History (Updated 08/26/19 @ 14:26 by Isai High M.D.) Aortic valve stenosis Chronic pain syndrome CKD (chronic kidney disease) stage 3, GFR 30-59 ml/min Dementia Depression DJD (degenerative joint disease) GERD (gastroesophageal reflux disease) History of kidney stones HLD (hyperlipidemia) HTN (hypertension) NAFLD (nonalcoholic fatty liver disease) reported per PCP Office Neuropathy due to type 2 diabetes mellitus T2DM (type 2 diabetes mellitus) Surgical History (Updated 08/26/19 @ 13:01 by Riya Pringle PA-C) History of appendectomy History of breast biopsy History of hysterectomy History of shoulder replacement 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 Gavino Cochran Family History (Updated 08/26/19 @ 13:02 by Riya Pringle PA-C) Mother Diabetes Kidney disease Brother Lung cancer Sister Breast cancer Daughter Cancer Renal cell CA Son Cancer Renal Cell CA Social History Preferred Language: Chilean Communication Ability: Effective Logging Shovel Operator Required: No Beliefs That Will Affect Care: None Current Living Situation: Family Other Information That Helps Us Care for You: No Feels Safe at Home: Yes Safety Concerns: Feels Safe At This Time Smoking Status: Never smoker Hx Alcohol Use: No Hx Substance Use: No Review of Systems Review of Systems: All systems reviewed & are unremarkable except as noted in HPI & below Physical Exam Physical Exam: See Dr. Dye's addendum for Physical Exam Results & Data Results & Data ([facility]) Vital Signs (Past 12 Hours) Vital Signs Temp Pulse Pulse Resp BP BP Pulse Ox 08/26/19 12:00 70 18 155/81 H 100 08/26/19 10:53 79 18 159/72 H 100 08/26/19 08:53 37.4 C 80 18 132/67 90 08/26/19 08:38 90 Laboratory Results Laboratory Results - last 24 hr 08/26/19 08/26/19 08/26/19 08:35 08:35 08:35 WBC 3.00 L RBC 4.12 L Hgb 11.2 L POC Hgb Hct 33.9 L POC Hct MCV 82.3 MCH 27.2 MCHC 33.0 RDW Std Deviation 43.2 RDW Coeff of Mary 14.4 Plt Count 87 L MPV 8.8 Immature Gran % (Auto) 1.3 Neut % (Auto) 81.7 Lymph % (Auto) 7.7 Moffat % (Auto) 8.3 Eos % (Auto) 0.3 Baso % (Auto) 0.7 Immature Gran # (Auto) 0.04 H Neut # (Auto) 2.45 Lymph # (Auto) 0.23 L Moffat # (Auto) 0.25 Eos # (Auto) 0.01 Baso # (Auto) 0.02 Platelet Estimate Decreased L PT 11.5 INR 1.1 POC Sodium Sodium 135 L POC Potassium Potassium 3.9 POC Chloride Chloride 102 Carbon Dioxide 25 POC Total CO2 Anion Gap 7.0 POC Anion Gap POC BUN BUN 26 H Creatinine 1.88 H POC Creatinine Est Cr Clr Drug Dosing 22.4 Est GFR ( Amer) 27.0 Est GFR (Non-Af Amer) 23.3 BUN/Creatinine Ratio 13.6 Glucose 212 H POC Glucose (other) Lactate Calcium 8.4 L POC Ioniz Calcium Mica Magnesium 1.8 Ferritin 127.6 Total Bilirubin 1.2 H AST 983 H ALT 694 H Alkaline Phosphatase 165 H Lactate Dehydrogenase Total Creatine Kinase Troponin I 0.075 H* Total Protein 6.9 Albumin 2.8 L Globulin 4.1 H Albumin/Globulin Ratio 0.7 L Lipase 233 TSH 1.380 Urine Color Urine Appearance Urine pH Ur Specific [place] Urine Protein Urine Glucose (UA) Urine Ketones Urine Blood Urine Nitrite Urine Bilirubin Urine Urobilinogen Ur Leukocyte Esterase Urine WBC (Auto) Urine RBC (Auto) U Hyaline Cast (Auto) U Epithel Cells (Auto) Urine Bacteria (Auto) COVID-19 PCR SARS-CoV-2 RNA (RT-PCR) 08/26/19 08/26/19 08/26/19 08:35 08:35 08:35 WBC RBC Hgb POC Hgb Hct POC Hct MCV MCH MCHC RDW Std Deviation RDW Coeff of Mary Plt Count MPV Immature Gran % (Auto) Neut % (Auto) Lymph % (Auto) [place] % (Auto) Eos % (Auto) Baso % (Auto) Immature Gran # (Auto) Neut # (Auto) Lymph # (Auto) Moffat # (Auto) Eos # (Auto) Baso # (Auto) Platelet Estimate PT INR POC Sodium Sodium POC Potassium Potassium POC Chloride Chloride Carbon Dioxide POC Total CO2 Anion Gap POC Anion Gap POC BUN BUN Creatinine POC Creatinine Est Cr Clr Drug Dosing Est GFR ( Amer) Est GFR (Non-Af Amer) BUN/Creatinine Ratio Glucose POC Glucose (other) Lactate 0.9 Calcium POC Ioniz Calcium Mica Magnesium Ferritin Total Bilirubin AST ALT Alkaline Phosphatase Lactate Dehydrogenase 1295 H Total Creatine Kinase 99 Troponin I Total Protein Albumin Globulin Albumin/Globulin Ratio Lipase TSH Urine Color Urine Appearance Urine pH Ur Specific [place] Urine Protein Urine Glucose (UA) Urine Ketones Urine Blood Urine Nitrite Urine Bilirubin Urine Urobilinogen Ur Leukocyte Esterase Urine WBC (Auto) Urine RBC (Auto) U Hyaline Cast (Auto) U Epithel Cells (Auto) Urine Bacteria (Auto) COVID-19 PCR SARS-CoV-2 RNA (RT-PCR) 08/26/19 08/26/19 08/26/19 08:37 08:45 08:45 WBC RBC Hgb POC Hgb 11.9 L Hct POC Hct 35 L MCV MCH MCHC RDW Std Deviation RDW Coeff of Mary Plt Count MPV Immature Gran % (Auto) Neut % (Auto) Lymph % (Auto) M[place]at % (Auto) Eos % (Auto) Baso % (Auto) Immature Gran # (Auto) Neut # (Auto) Lymph # (Auto) Moffat # (Auto) Eos # (Auto) Baso # (Auto) Platelet Estimate PT INR POC Sodium 135 Sodium POC Potassium 4.0 Potassium POC Chloride 100 L Chloride Carbon Dioxide POC Total CO2 23 L Anion Gap POC Anion Gap 17.0 POC BUN 24 H BUN Creatinine POC Creatinine 1.7 H Est Cr Clr Drug Dosing Est GFR ( Amer) Est GFR (Non-Af Amer) BUN/Creatinine Ratio Glucose POC Glucose (other) 224 H Lactate Calcium POC Ioniz Calcium Mica 1.18 Magnesium Ferritin Total Bilirubin AST ALT Alkaline Phosphatase Lactate Dehydrogenase Total Creatine Kinase Troponin I Total Protein Albumin Globulin Albumin/Globulin Ratio Lipase TSH Urine Color Yellow Urine Appearance Clear Urine pH 5.5 Ur Specific [place] 1.019 Urine Protein 3+ H Urine Glucose (UA) Negative Urine Ketones Negative Urine Blood Negative Urine Nitrite Negative Urine Bilirubin Negative Urine Urobilinogen Negative Ur Leukocyte Esterase Negative Urine WBC (Auto) 1-5 Urine RBC (Auto) 0-4 U Hyaline Cast (Auto) 1-5 U Epithel Cells (Auto) 20-30 H Urine Bacteria (Auto) Negative COVID-19 PCR SARS-CoV-2 RNA (RT-PCR) Cancelled 08/26/19 08:45 WBC RBC Hgb POC Hgb Hct POC Hct MCV MCH MCHC RDW Std Deviation RDW Coeff of Mary Plt Count MPV Immature Gran % (Auto) Neut % (Auto) Lymph % (Auto) Moffat % (Auto) Eos % (Auto) Baso % (Auto) Immature Gran # (Auto) Neut # (Auto) Lymph # (Auto) Moffat # (Auto) Eos # (Auto) Baso # (Auto) Platelet Estimate PT INR POC Sodium Sodium POC Potassium Potassium POC Chloride Chloride Carbon Dioxide POC Total CO2 Anion Gap POC Anion Gap POC BUN BUN Creatinine POC Creatinine Est Cr Clr Drug Dosing Est GFR ( Amer) Est GFR (Non-Af Amer) BUN/Creatinine Ratio Glucose POC Glucose (other) Lactate Calcium POC Ioniz Calcium Mica Magnesium Ferritin Total Bilirubin AST ALT Alkaline Phosphatase Lactate Dehydrogenase Total Creatine Kinase Troponin I Total Protein Albumin Globulin Albumin/Globulin Ratio Lipase TSH Urine Color Urine Appearance Urine pH Ur Specific [place] Urine Protein Urine Glucose (UA) Urine Ketones Urine Blood Urine Nitrite Urine Bilirubin Urine Urobilinogen Ur Leukocyte Esterase Urine WBC (Auto) Urine RBC (Auto) U Hyaline Cast (Auto) U Epithel Cells (Auto) Urine Bacteria (Auto) COVID-19 PCR NEGATIVE SARS-CoV-2 RNA (RT-PCR) Diagnostic Findings Abd/Pelvis CT: IMPRESSION: 1. No acute posttraumatic abnormality identified within the abdomen or pelvis. 2. No acute fracture. Multiple remote right-sided rib fractures are noted. 3. Moderate right-sided renal atrophy and moderate hydronephrosis is noted along with a partially calcified heterogeneous lesion centered within the renal pelvis. Debris within the renal pelvis is noted along with associated urothelial thickening. Findings are suggestive of a urothelial lesion and follow-up with urology consultation is needed. 4. Trace pleural effusions. 5. Splenomegaly. 6. Additional findings as above. Chest CT: IMPRESSION: 1. No acute traumatic process within the chest. 2. Old, healed right posterior rib fractures. 3. A focal 1 cm irregular density within the right upper lobe which could represent scarring or a pulmonary lesion. A [address] follow-up recommended for further evaluation. 4. A few scattered subcentimeter groundglass nodule within the right lung with the largest measuring 4 mm. These also bear watching future examinations. 5. Additional findings as described above. Head CT: Impression: No acute intracranial abnormality. Atrophy and microvascular ischemic changes. C-Spine CT: IMPRESSION: 1. No evidence of acute fracture or traumatic subluxation 2. Advanced multilevel degenerative changes with multilevel spinal stenosis which is severe at the C5-C6 level. Code Status & VTE Plan VTE Prophylaxis Plan VTE Prophylaxis will be ordered: Yes Supervising Physician Co-Signing Physician Notes History and physical exam obtained by me. History significant for 89-year-old woman with CKD 3, DM 2, dementia, hypertension who presented with worsening generalized weakness for the past 2 days. History obtained from patient and daughter was at bedside. [place] had [place] in the [place] about 1 week Also reported nausea, reduced urinary output, fever this morning and some shortness of breath. Notable history of worsening weakness over the past few months with falls FSH - Multiple family members that of different cancers. Physical exam, General: Elderly woman, alert, appears weak Eyes: PERRL, conjunctivae normal, not pale, anicteric sclerae, EOM intact bilaterally ENMT: External ear and nose normal, oropharynx normal Neck: Normal visual inspection, no swelling noted Respiratory: Normal respiratory effort, no respiratory distress, lungs clear to auscultation, no crackles and no wheezes Cardiovascular: Pulse is RRR. S1-2, no pedal edema Chest (Breasts): Chest: normal inspection of chest, mild tenderness over palpation of right lower rib cage and RUQ Gastrointestinal (Abdomen): Abdomen is not distended, soft, mild tenderness over RUQ and lower rib cage (likely related to previous rib fractures as patient reported she has been having the pain since her fall and rib fractures), no guarding, normal bowel sounds Musculoskeletal: No cyanosis or clubbing, no pedal edema Genitourinary: No CVA tenderness Skin: Some scab on right side of forehead (daughter reports patient usually picks on her skin) Neurologic: Alert and oriented to person, place and month, No focal weakness, sensation grossly intact, power is about 5/5 in both UE and 4/5 in both LE Psychiatric: Euthymic affect, no depressed affect Labs notable for WBC of 3, Hb of 11.2, Plt 87, Na of 135, Cr of 1.88, AST of 983, ALT 694, Alk P 165, LDH 1295, Trop 0.075 CXR show multiple subacute and chronic right sided rib fractures Abd/Pelvis CT show Moderate Rigth renal atrophy, mod hydronephrosis, 3.2x2.3x3.4cm lesion. Scattered calcified granulomata throughout the liver CT chest showed few scattered groundglass nodules in right lung, focal 1cm irregular density in RUL (?scarring) -Transaminitis -Thrombocytopenia -Fever, Shortness of breath -SABINE on CKD3 -Right renal lesion -Ambulatory dysfunction -Elevated troponin Elevated liver enzymes. Get RUQ USS GI consult Monitor liver enzymes Hold home atorvastatin for now Fever reported and shortness of breath Differentials also include Possible Community acquired pneumonia, rule out Tick borne illness. COVID19 negative Get blood cultures Start ceftriaxone and doxycycline Get Tick borne testing for lyme, anaplasma Concern for possible malignancy considering history and findings Get urology consult for evaluation of renal mass Will benefit from tissue diagnosis Elevated troponin. EKG does not show any ischemic changes. Will trend trop. Monitor EKG Telemetry monitoring Monitor SABINE on CKD with IVF Get records from PCP PT/OT eval Other plans as detailed in note by Riya Pringle PA-C
[2019-08-26] MEDS ORDERED: ACETAMINOPHEN 10MG/ML PEDIATRIC DOSING IV PRN (15:44)
[2019-08-26] MEDS ORDERED: VANCOMYCIN CONSULT ACTIVE PRN (15:48)
[2019-08-26] MEDS: cefTRIAXone SODIUM 2,000 MG in DEXTROSE 5% 50 ML IV SCH (16:00)
[2019-08-26] MEDS ORDERED: VANCOMYCIN HCL 1,000 MG in SODIUM CHLORIDE 0.9% 250 ML IV SCH ×2 (16:00→17:45)
[2019-08-26] MEDS ORDERED: AMLODIPINE BESYLATE 5 MG TAB PO STA ×2 (16:01→18:40)
[2019-08-26] MEDS ORDERED: ONDANSETRON INJ 2 MG/ML 2 ML VIAL ONE (16:08)
[2019-08-26] MEDS ORDERED: ONDANSETRON INJ 2 MG/ML 2 ML VIAL IV PRN ×2 (16:09→16:11)
[2019-08-26] MEDS ORDERED: LABETALOL HCL IV 5 MG/ML 20ML IV STA (16:16)
[2019-08-26] MEDS ORDERED: ACETAMINOPHEN IV ONE (16:30)
[2019-08-26] MEDS ORDERED: ACETAMINOPHEN 10MG/ML PEDIATRIC DOSING IV ONE (16:30)
[2019-08-26] MEDS ORDERED: DEXTROSE 50% 50 ML SYRINGE IV PRN (18:18)
[2019-08-26] MEDS ORDERED: GLUCAGON FOR INJ 1 MG VIAL SQ PRN (18:18)
[2019-08-26] MEDS ORDERED: CARBOHYDRATES FOR HYPOGLYCEMIA PO PRN (18:18)
[2019-08-26] MEDS ORDERED: GLUCOSE 40% GEL 15 GM TUBE PO PRN (18:18)
[2019-08-26] MEDS ORDERED: ACETAMINOPHEN 325 MG SUPP PR PRN (18:18)
[2019-08-26] MEDS ORDERED: GLUCOSE 10 TABS/TUBE PO PRN (18:18)
[2019-08-26] MEDS ORDERED: HydrALAZINE HCL 20 MG/ML VIAL IV PRN (18:45)
[2019-08-26] MEDS: SODIUM CHLORIDE 0.9% 1000ML 1,000 ML IV SCH (19:06)
[2019-08-26 19:27] LABS: Hepatitis B Surface Antigen Neg (Neg)
[2019-08-26 19:40] LABS: Lyme Ab IgG w/WB Rflx Negative (Negative); Lyme Ab IgM w/WB Rflx Negative (Negative)
[2019-08-26 19:56] LABS: Hepatitis C IgG 13Yrs+Old_Rflx Neg (Neg)
[2019-08-26] MEDS: GABAPENTIN 600 MG TAB PO SCH (20:37)
[2019-08-26] MEDS: DOXYCYCLINE HYCLATE 100 MG CAP PO SCH (20:37)
[2019-08-26] MEDS: INSULIN ASPART 100 UNITS/ML 3 ML PEN SC SCH (20:38)
[2019-08-26] MEDS ORDERED: HEPARIN SOD 5,000 UNIT/0.5 ML VIAL SQ SCH (21:00)
--- NOTE | 2019-08-26 23:14 | Electrocardiogram Report ---
Test Reason : Blood Pressure : / mmHG Vent. Rate : 091 BPM Atrial Rate : 091 BPM P-R Int : 178 ms QRS Dur : 092 ms QT Int : 404 ms P-R-T Axes : 075 -33 075 degrees QTc Int : 496 ms Normal sinus rhythm Left axis deviation Nonspecific ST abnormality Prolonged QT Abnormal ECG No previous ECGs available Confirmed by Charles Nicholson ([id number]) on 08/26/2019 11:13:54 PM Referred By: Confirmed By:Charles Nicholson
[2019-08-27] MEDS ORDERED: LABETALOL HCL IV 5 MG/ML 20ML IV STA (03:44)
[2019-08-27] MEDS ORDERED: LABETALOL HCL IV 5 MG/ML 20ML IV ONE (03:45)
[2019-08-27 04:41] LABS: Hematocrit (blood only) 31.9 % (37-47); Hemoglobin 10.7 g/dL (12.0-16.0); Mean Corpuscular Hgb Conc 33.5 g/dL (32-36); Mean Corpuscular Volume 80.4 fL (80-100); RDW Coefficient of Variation 14.5 % (11.5-14.5); RDW Standard Deviation 42.3 fL (36.4-46.3); Red Blood Count 3.97 M/uL (4.2-5.4); White Blood Count 2.86 K/uL (4.8-10.8)
[2019-08-27 04:44] LABS: Mean Platelet Volume 10.3 fL (7.4-10.4); Platelet Count 59 K/uL (130-400)
[2019-08-27 05:01] LABS: Albumin Level 2.5 gm/dl (3.4-5.0); Calcium 7.9 mg/dl (8.5-10.1); Creatinine Clr Calc Pharmacy 21.9 ml/min; Est GFR (African American) 26.3; Est GFR (Non-African American) 22.7; Potassium 3.8 mmol/L (3.5-5.1)
[2019-08-27 05:04] LABS: Albumin Globulin Ratio 0.7 (0.9-2); Bilirubin,Total 0.7 mg/dl (0.2-1); Globulin 3.7 gm/dl (2.5-4.0); Total Protein 6.2 gm/dl (6.4-8.2)
[2019-08-27 07:25] LABS: Estimated Average Glucose 174 mg/dl; Hemoglobin A1C 7.7 % (4.5-5.6)
[2019-08-27] MEDS: SODIUM CHLORIDE 0.9% 1000ML 1,000 ML IV SCH ×2 (07:40→19:59)
[2019-08-27] MEDS: GABAPENTIN 600 MG TAB PO SCH (07:40)
[2019-08-27] MEDS: DONEPEZIL HCL 10 MG TAB PO SCH (07:41)
[2019-08-27] MEDS: SERTRALINE HCL 50 MG TABLET PO SCH (07:41)
[2019-08-27] MEDS: MAGNESIUM OXIDE 400 MG TAB PO SCH (07:41)
[2019-08-27] MEDS: AMLODIPINE BESYLATE 5 MG TAB PO SCH (07:41)
[2019-08-27] MEDS: DOXYCYCLINE HYCLATE 100 MG CAP PO SCH ×2 (07:41→21:48)
[2019-08-27] MEDS: PANTOprazole 40 MG TAB PO SCH (07:41)
[2019-08-27] MEDS: INSULIN ASPART 100 UNITS/ML 3 ML PEN SC SCH ×4 (07:43→21:29)
[2019-08-27] MEDS ORDERED: HYDROmorphone INJ 0.5 MG/0.5 ML SYR IV STA (08:01)
[2019-08-27] MEDS ORDERED: TRAMADOL HCL 50 MG TABLET PO PRN (09:01)
--- NOTE | 2019-08-27 09:48 | Gastrointestinal Consultation ---
Date of Consultation August 27, 2019 Assessment & Plan (1) Transaminitis: Pt is a 89 y/o female presented w SOB, increasing weakness, fever, labs notable for pancytopenia, markedly elevated LFTs new from baseline. Coag studies and mental status normal. She was living near [facility] and home and recently in camp. Workup for tick borne illness + for Anaplasmosis smear, rest pending. Acute hepatitis negative for Hep B, and C. Imaging studies w/ signs of splenomegaly but w/o acute liver/biliary issue. She is s/p cholecystectomy. Abd exam is benign and she is not displaying any jaundice. Given marked improvement of LFTs overnight w IVF hydration and antibx, suspect likely viral/tick borne illness. She also has hx of fatty liver, less likely TRAORE but among differential. AIH, other viral illnesses should also be ruled out - Trend LFTs, monitor coag function, renal function - Continue Doxycycline and Ceftriaxone antibx for now - Will obtain AIH serologies and other viral labs (EBV/mono, CMV, Parvovirus, HSV) to rule these out as well. - Check BNP to r/o congestive heart dz which may cause congestive hepatopathy given her cardiomegaly, crackles on lungs - F/U tick borne illness serologies, rest of hepatitis panel as previously obtained - F/U for RUL and R renal pelvis lesions per primary team. - Avoid hepatotoxic meds Supervising Physician Co-Signing Physician Notes I have seen and examined the patient with OSKAR Knutson whose note reflects our findings and plan. LFTs improving since abx initiated. Await additional diagnostics. Follow LFTs daily. History of Present Illness Reason for Consultation: Acute Hepatitis Requesting Physician: Dr. Sam Kaye Attending Physician: Dr. Fany Vargas History of Present Illness Pt is a 89 y/o female w PMHx as noted below who [facility] w [facility]B and increasing weakness. Hx of fall in February w ribs fx, was getting PT but on hold due to COVID 19 concerns. Pt got progressively weaker over last few months but most notably in 1-2 day's time as she cannot get out of bed and fell twice. [place] had [place] at [place] for about [place]. Family noted she had 103F and given 2 Tylenol prior to admission. She also had decreased urination. Pt reports dizziness, w nausea but no vomiting. Denies abd pain, bowel habit changes. Workup on admission including labs and imaging studies reviewed. Noted she was pancytopenic. Coag function normal. LDH and Troponin up but EKG w/o acute ischemic changes. Cr 1.5 as of 04/2019 per PCP's records, now up Cr 1.9. LFTs w marked elevation Tbili 1.2, AST 900s, ALT 600s, Alk phose 160s. This AM LFTs are much improved. Lipase normal. Given that pt was living near [facility] home and recently at [place], tick born illness was suspected as one of differentials. Anasplasmosis smear positive, rest of serologies pending. Acute hepatitis panel negative for Hep B and C. CT head, cervical, chest, abd pelvis notable for rib fracture, RUL lung lesion 2cm, R renal pelvis calcified lesion and urothelial thickening. + splenomegaly but no acute liver or biliary system issues. She is s/p cholecystectomy. Pt denies family hx of autoimmune liver dz, iron/copper overload. She has known hx of fatty liver. Though per PCP records, LFTs and Plts were recently normal back in Apr 2019 Denies herbal supplements or regular uses of APAP. Tylenol level low on admission Denies hx of tattoos, illicit drugs, hx of hepatitis Allergies Allergy/AdvReac Type Severity Reaction Status Date / Time No Known Allergies Allergy Verified 08/26/19 16:55 Home Medications Home Medications Medication Instructions Recorded Confirmed Type amlodipine 10 mg PO DAILY 08/26/19 08/26/19 History aspirin 81 mg PO DAILY 08/26/19 08/26/19 History atorvastatin 40 mg PO DAILY 08/26/19 08/26/19 History carboxymethylcellulose sodium 1 drp OPHTHALMIC (EYE) QID 08/26/19 08/26/19 History [Refresh Tears] celecoxib 200 mg PO DAILY 08/26/19 08/26/19 History donepezil 10 mg PO DAILY 08/26/19 08/26/19 History gabapentin 600 mg PO TID 08/26/19 08/26/19 History hydrocodone-acetaminophen 1 tab PO DAILY 08/26/19 08/26/19 History lorazepam 0.5 mg PO DAILY 08/26/19 08/26/19 History magnesium oxide 400 mg PO DAILY 08/26/19 08/26/19 History olmesartan 20 mg PO DAILY 08/26/19 08/26/19 History omeprazole 10 mg PO DAILY 08/26/19 08/26/19 History sertraline 150 mg PO DAILY 08/26/19 08/26/19 History sitagliptin 100 mg PO DAILY 08/26/19 08/26/19 History Patient History Medical History (Updated 08/27/19 @ 10:11 by Sam Kaye MD) Aortic valve stenosis Chronic pain syndrome CKD (chronic kidney disease) stage 3, GFR 30-59 ml/min Dementia Depression DJD (degenerative joint disease) GERD (gastroesophageal reflux disease) History of kidney stones HLD (hyperlipidemia) HTN (hypertension) NAFLD (nonalcoholic fatty liver disease) reported per PCP Office Neuropathy due to type 2 diabetes mellitus T2DM (type 2 diabetes mellitus) Surgical History (Updated 08/26/19 @ 13:01 by Riya Pringle PA-C) History of appendectomy History of breast biopsy History of hysterectomy History of shoulder replacement 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 Gavino Cochran Family History (Updated 08/26/19 @ 13:02 by Riya Pringle PA-C) Mother Diabetes Kidney disease Brother Lung cancer Sister Breast cancer Daughter Cancer Renal cell CA Son Cancer Renal Cell CA Social History Preferred Language: Portuguese Communication Ability: Effective A/C Technician Required: No Beliefs That Will Affect Care: None Current Living Situation: Family Other Information That Helps Us Care for You: No Feels Safe at Home: Yes Safety Concerns: Feels Safe At This Time Smoking Status: Never smoker Hx Alcohol Use: No Hx Substance Use: No Review of Systems Review of Systems: All systems reviewed & are unremarkable except as noted in HPI & below Physical Exam Constitutional: WD/WN, vitals as above well groomed, cooperative and comfortable Eyes: PERRL, conjunctivae normal, anicteric sclerae ENMT: external ear and nose normal, oropharynx normal Respiratory: normal respiratory effort; no respiratory distress and does not use accessory muscles Auscultation: + crackles (lower lobes) Cardiovascular: Rate/Rhythm: regular rate and regular rhythm Heart Sounds: + murmur Gastrointestinal (Abdomen): normal bowel sounds, soft, nontender, no hepatosplenomegaly Skin: no rashes, warm and dry no jaundice Neurologic: Motor/Sensory: no asterixis Psychiatric: A+Ox3, euthymic affect Lymphatic: no lymphedema Results & Data ([facility]) Vital Signs (Past 12 Hours) Vital Signs Temp Pulse Pulse Resp BP BP Pulse Ox 08/27/19 08:00 37.0 C 94 H 20 103/68 95 08/27/19 04:00 37.1 C 91 H 14 136/66 99 08/26/19 23:00 37.0 C 76 16 168/81 H 98 08/26/19 22:30 67 19 98 08/26/19 22:20 76 17 99 08/26/19 22:10 64 18 99 08/26/19 22:06 71 23 150/66 H 98 08/26/19 22:00 68 20 98 08/26/19 21:50 70 19 98 08/26/19 21:40 82 16 97
[2019-08-27 09:50] LABS: Anaplasmosis Smear(Rpt to DOH) Pos for Anaplasma
--- NOTE | 2019-08-27 10:15 | Hospitalist Progress Note ---
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 Has been started with intravenous ceftriaxone and doxycycline Clinically better this morning (2) Thrombocytopenia: Leukopenia, anemia and thrombocytopenia seem to be secondary to anaplasmosis We will monitor while in the hospital We will hold off any pharmacologic anticoagulation for now due to thrombus cytopenia (3) Fever: No definite pneumonia but may have pneumonitis We will continue with intravenous antibiotic for now (4) Acute hepatitis: Has significant transaminitis without any obstructive features Appreciate GI input and recommendation LFTs are seems to be improving Avoid any medications that can impair liver function (5) Hfrlm-ed-[id number] kidney injury: Patient with CKD III historically. Creatinine slightly worse than baseline. 1.5--> 1.88 today. Gentle IV Hydration. Continue to monitor I&Os. Possibly due to current illness. Check Urine culture. Hold Celebrex- feel that this likely should be discontinued on discharge. Kidney function has not improved yet Advised more fluid intake (6) Troponin level elevated: Doubt any acute cardiac injury and/or ACS Mild elevation of troponin could be secondary to renal impairment Patient denies any cardiac symptoms (7) SOB (shortness of breath): No definite pneumonia and/or CHF on CAT scan Has questionable groundglass opacities Shortness of breath has been improving Will need follow-up imaging studies for lung lesions (8) Weakness: (9) Lesion of right [place] kidney: Strong family history of Renal Cell CA. Consult Urology for opinion regfermin coopering follow up. Will get ultrasound of the renal system (10) Recurrent falls: (11) Pulmonary lesion: (12) Ground glass opacity present on imaging of lung: Patient does not have history of tobacco use. Uncertain etiology of pulmonary 1 cm lesion. With ground glass opacity, fever, weakness, and SOB, will start IV CTX prophylactically as well for possible CAP. COVID negative. Continue PRN O2 to maintain SaO2 >88%. (13) T2DM (type 2 diabetes mellitus): Hold sitagliptin. Insulin protocol. (14) HTN (hypertension): Hold Olmesartan. Continue amlodipine. Blood pressure remains in the lower side of normal We will continue holding olmesartan (15) Dementia: (16) GERD (gastroesophageal reflux disease): Continue omeprazole. (17) Cervical stenosis of spinal canal: Seems unlikely to be causing current symptoms. Follow up as needed as outpatient. Patient's daughter, Jonelle is ISAIAS. Phone number is [phone]. Admission and Anticipated Discharge Date Admission Date: August 26, 2019 Subjective The patient was seen and examined in ICU She has been feeling better since admission Remains weak and lethargic Review of Systems Review of Systems: All systems reviewed and are unremarkable except as noted below Constitutional: + body aches, + fatigue and + weakness Respiratory: no cough and no dyspnea Cardiovascular: no chest pain Gastrointestinal: no abdominal pain, no bloating, no nausea and no vomiting Musculoskeletal: Generalized aches and pains and neck pain Neurologic: + headache(s) Pleasantly confused Physical Exam Physical Exam: Lying in bed comfortably Constitutional: well developed, well nourished, + ill appearing and + obese; no acute distress Eyes: PERRL, conjunctivae normal, anicteric sclerae ENMT: external ear and nose normal, oropharynx normal Neck: trachea midline, no thyromegaly No neck stiffness Respiratory: normal respiratory effort; no respiratory distress Auscultation: lungs clear to auscultation bilaterally Cardiovascular: Rate/Rhythm: regular rate and regular rhythm Heart Sounds: no murmur Gastrointestinal (Abdomen): Inspection/Auscultation: abdomen normal to inspection; abdomen not distended Percussion/Palpation: abdomen soft; abdomen nontender Musculoskeletal: No acute arthritis in any joints Skin: no rashes No rash Neurologic: moves all extremities; no focal motor deficits Generally weak and lethargic. Pleasantly confused Lymphatic: no cervical or axillary lymphadenopathy Results & Data Results & Data ([facility]) Vital Signs (Past 12 Hours) Vital Signs Temp Pulse Pulse Resp BP Pulse Ox 08/27/19 08:00 37.0 C 94 H 20 103/68 95 08/27/19 04:00 37.1 C 91 H 14 136/66 99 08/26/19 23:00 37.0 C 76 16 168/81 H 98 08/26/19 22:30 67 19 98 08/26/19 22:20 76 17 99 08/26/19 22:10 64 18 99 Laboratory Results Short CBC 08/27/19 Range/Units 04:05 WBC 2.86 L (4.8-10.8) K/uL Hgb 10.7 L (12.0-16.0) g/dL Hct 31.9 L (37-47) % Plt Count 59 L (130-400) K/uL BMP 08/27/19 04:05 Sodium 136 Potassium 3.8 Chloride 104 Carbon Dioxide 27 BUN 27 H Creatinine 1.92 H Glucose 122 H Calcium 7.9 L Cardiac Enzymes 08/26/19 08/27/19 Range/Units 18:37 00:15 Troponin I 0.088 H* 0.094 H* (0-0.045) ng/ml Liver Function 08/27/19 Range/Units 04:05 Total Bilirubin 0.7 D (0.2-1) mg/dl AST 280 H (15-37) U/L ALT 357 H (12-78) U/L Alkaline Phosphatase 146 H (45-117) U/L Albumin 2.5 L (3.4-5.0) gm/dl Medications Administered Current Inpatient Medications Amlodipine Besylate (Norvasc) 10 mg PO DAILY WIL Stop: 09/26/19 08:59 Last Admin: 08/27/19 07:41 Dose: 10 mg Documented by: Dextrose (Dextrose 50%) 25 - 50 ml IV UD PRN; Protocol PRN Reason: Hypoglycemia Protocol Stop: 09/25/19 18:17 Donepezil HCl (Aricept) 10 mg PO DAILY WIL Stop: 09/26/19 08:59 Last Admin: 08/27/19 07:41 Dose: 10 mg Documented by: Doxycycline Hyclate (Vibramycin) 100 mg PO BID WIL Stop: 09/02/19 20:59 Last Admin: 08/27/19 07:41 Dose: 100 mg Documented by: Gabapentin (Neurontin) 300 mg PO TID WIL Stop: 09/26/19 13:59 Glucagon (Glucagen) 1 mg SQ UD PRN; Protocol PRN Reason: Hypoglycemia Protocol Stop: 09/25/19 18:17 Glucose (Dex4 Glucose) 4 - 8 tabs PO UD PRN; Protocol PRN Reason: Hypoglycemia Protocol Stop: 09/25/19 18:17 Glucose (Glucose 40%) 15 - 30 gm PO UD PRN; Protocol PRN Reason: Hypoglycemia Protocol Stop: 09/25/19 18:17 Heparin Sodium (Porcine) (Heparin Sodium (Porcine)) 5,000 units SQ Q12 [facility] Stop: 09/25/19 20:59 Last Admin: 08/26/19 20:37 Dose: 5,000 units Documented by: Hydralazine HCl (Hydralazine Hcl) 5 mg IV Q6 PRN PRN Reason: Hypertension Stop: 09/25/19 18:44 Last Admin: 08/27/19 03:29 Dose: 5 mg Documented by: Ceftriaxone Sodium 2,000 mg/ (Dextrose) 50 mls @ 100 mls/hr IV Q24H [facility]; Protocol Stop: 09/02/19 15:59 Last Infusion: 08/26/19 16:30 Dose: Infused Documented by: Sodium Chloride (Nss 1000ml) 1,000 mls @ 80 mls/hr IV .[id number] [facility] Stop: 09/25/19 18:44 Last Admin: 08/27/19 07:40 Dose: 80 mls/hr Documented by: Insulin Aspart (Novolog Flexpen) 0 units SC ACHS [facility] Stop: 09/25/19 20:59 Last Admin: 08/27/19 07:43 Dose: 1 units Documented by: Magnesium Oxide (Mag-Ox) 400 mg PO DAILY [facility] Stop: 09/26/19 08:59 Last Admin: 08/27/19 07:41 Dose: 400 mg Documented by: Miscellaneous (Carbohydrates For Hypoglycemia) 15 - 30 gm PO UD PRN PRN Reason: Hypoglycemia Protocol Stop: 09/25/19 18:17 Ondansetron HCl (Zofran) 4 mg IV Q6H PRN PRN Reason: Nausea Stop: 09/25/19 16:08 Pantoprazole Sodium (Protonix) 40 mg PO DAILY [facility] Stop: 09/26/19 08:59 Last Admin: 08/27/19 07:41 Dose: 40 mg Documented by: Sertraline HCl (Zoloft) 150 mg PO DAILY [facility] Stop: 09/26/19 08:59 Last Admin: 08/27/19 07:41 Dose: 150 mg Documented by:
[2019-08-27 10:29] LABS: Iron 31 mcg/dl (35-150); NT Pro B Type Natriuretic Pept 5317 pg/ml (0-1800); Total Iron Binding Capacity 275 mcg/dl (250-450); Transferrin 227 mg/dl (200-360); Transferrin Percent Saturation 10 % (15-50)
[2019-08-27] MEDS: ACETAMINOPHEN 500 MG TAB PO PRN ×2 (11:01→22:32)
--- NOTE | 2019-08-27 11:04 | Urology Consultation ---
Date of Consultation August 27, 2019 Assessment & Plan (1) Renal mass: Concerning appearance of the right renal pelvis Appearance suggests high possibility of TCC, slightly lower possibility of RCC, or benign mass At present I think we need to focus on her acute issues and can work-up the jeanette l lesion as an outpatient We will certainly have to make some decisions given her age and comorbid conditions I will send a cytology now although it may be difficult to interpret secondary to the Man catheter As long as she remains asymptomatic from a kidney standpoint I would avoid any emergent interventions History of Present Illness Attending Physician: Sam Kaye MD History of Present Illness 89-year-old female with a multitude of acute and chronic issues Presented after a fall while visiting her granddaughter[place] In the midst of work-up, was found to have acute elevation of her LFTs consistent with hepatitis Question of tickborne illness Incidental discovery of a right renal pelvis mass She is a non-smoker She has never experienced gross hematuria She denies renal colic type right flank pain Subjectively she reports that she is drastically improved today and feels quite well Allergies Allergy/AdvReac Type Severity Reaction Status Date / Time No Known Allergies Allergy Verified 08/26/19 16:55 Home Medications Home Medications Medication Instructions Recorded Confirmed Type amlodipine 10 mg PO DAILY 08/26/19 08/26/19 History aspirin 81 mg PO DAILY 08/26/19 08/26/19 History atorvastatin 40 mg PO DAILY 08/26/19 08/26/19 History carboxymethylcellulose sodium 1 drp OPHTHALMIC (EYE) QID 08/26/19 08/26/19 History [Refresh Tears] celecoxib 200 mg PO DAILY 08/26/19 08/26/19 History donepezil 10 mg PO DAILY 08/26/19 08/26/19 History gabapentin 600 mg PO TID 08/26/19 08/26/19 History hydrocodone-acetaminophen 1 tab PO DAILY 08/26/19 08/26/19 History lorazepam 0.5 mg PO DAILY 08/26/19 08/26/19 History magnesium oxide 400 mg PO DAILY 08/26/19 08/26/19 History olmesartan 20 mg PO DAILY 08/26/19 08/26/19 History omeprazole 10 mg PO DAILY 08/26/19 08/26/19 History sertraline 150 mg PO DAILY 08/26/19 08/26/19 History sitagliptin 100 mg PO DAILY 08/26/19 08/26/19 History Patient History Medical History Aortic valve stenosis Chronic pain syndrome CKD (chronic kidney disease) stage 3, GFR 30-59 ml/min Dementia Depression DJD (degenerative joint disease) GERD (gastroesophageal reflux disease) History of kidney stones HLD (hyperlipidemia) HTN (hypertension) NAFLD (nonalcoholic fatty liver disease) reported per PCP Office Neuropathy due to type 2 diabetes mellitus T2DM (type 2 diabetes mellitus) Surgical History History of appendectomy History of breast biopsy History of hysterectomy History of shoulder replacement 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 Gavino Cochran Family History Mother Diabetes Kidney disease Brother Lung cancer Sister Breast cancer Daughter Cancer Renal cell CA Son Cancer Renal Cell CA Social History Preferred Language: Vietnamese Communication Ability: Effective Catering Service Manager Required: No Beliefs That Will Affect Care: None Current Living Situation: Family Other Information That Helps Us Care for You: No Feels Safe at Home: Yes Safety Concerns: Feels Safe At This Time Smoking Status: Never smoker Hx Alcohol Use: No Hx Substance Use: No Review of Systems Review of Systems: All systems reviewed & are unremarkable except as noted in HPI & below Physical Exam Physical Exam: Quite comfortable appearing No CVA tenderness on the right or the left No suprapubic tenderness Man catheter in place with clear urine Constitutional: well developed and well nourished Neck: neck nontender Respiratory: normal respiratory effort; no respiratory distress and does not use accessory muscles Cardiovascular: Rate/Rhythm: regular rate Vessels: radial pulses present Extremities: no edema Gastrointestinal (Abdomen): Inspection/Auscultation: abdomen normal to inspection Percussion/Palpation: abdomen soft; abdomen nontender and no guarding Musculoskeletal: Head/Neck/Chest: normocephalic and head atraumatic Extremities: extremities normal to inspection Skin: no rashes and no lesions Trauma: no evidence of skin trauma Neurologic: awake; not obtunded Speech / Cognition: normal speech Motor/Sensory: no tremor Psychiatric: Orientation: alert and oriented x 3 Lymphatic: no lymphadenopathy Results & Data Vital Signs (Past 12 Hours) Vital Signs Temp Pulse Resp BP Pulse Ox 08/27/19 10:52 38.5 C H 84 20 168/88 H 95 08/27/19 08:00 37.0 C 94 H 20 103/68 95 08/27/19 04:00 37.1 C 91 H 14 136/66 99 PG Care Time/CCT Total # of Minutes Spent Total Time Spent with Patient: Total time spent is greater than 50% in coordination of care (as documented) at patient's floor/unit and/or counseling patient: Coding Level of Care Code 68451 Inpt Consult Level 4 Diagnoses Renal mass N28.89
[2019-08-27] MEDS: GABAPENTIN 300 MG CAP PO SCH ×2 (13:33→21:29)
[2019-08-27] MEDS: cefTRIAXone SODIUM 2,000 MG in DEXTROSE 5% 50 ML IV SCH (16:16)
[2019-08-27] MEDS ORDERED: METOPROLOL TARTRATE 1 MG/ML VIAL IV ONE (22:21)
[2019-08-27] MEDS ORDERED: METOPROLOL TARTRATE 1 MG/ML VIAL IV STA ×2 (22:22→22:25)
[2019-08-27] MEDS ORDERED: dilTIAZem HCl 5 MG/ML 5 ML VIAL IV STA (22:32)
[2019-08-27] MEDS ORDERED: STAT IV Infusion **Titration per Protocol STA (22:32)
[2019-08-27 23:21] LABS: Partial Thromboplastin Ratio 1.2; Partial Thromboplastin Time 34.5 Seconds (21.0-31.0)
--- NOTE | 2019-08-27 23:26 | Electrocardiogram Report ---
Test Reason : Blood Pressure : / mmHG Vent. Rate : 108 BPM Atrial Rate : 108 BPM P-R Int : 228 ms QRS Dur : 096 ms QT Int : 306 ms P-R-T Axes : 061 -34 068 degrees QTc Int : 410 ms Sinus tachycardia with 1st degree A-V block Left axis deviation Inferior infarct , age undetermined Abnormal ECG When compared with ECG of 26-AUG-2019 08:28, [place] interval has increased Inferior infarct is now Present QT has shortened Confirmed by Charles Nicholson ([id number]) on 08/27/2019 11:26:38 PM Referred By: REFERRED SELF Confirmed By:Charles Nicholson
[2019-08-27] MEDS: dilTIAZem HCL 125 MG in DEXTROSE 5% 100 ML IV SCH (23:39)
[2019-08-27] MEDS: HEPARIN SODIUM/DEXTROSE 25,000 UNITS/500 ML BAG IV SCH (23:44)
[2019-08-28 04:51] LABS: Hematocrit (blood only) 30.3 % (37-47); Hemoglobin 10.2 g/dL (12.0-16.0); Mean Corpuscular Hemoglobin 27.4 pg (25-34); Mean Corpuscular Hgb Conc 33.7 g/dL (32-36); Mean Corpuscular Volume 81.5 fL (80-100); RDW Coefficient of Variation 14.8 % (11.5-14.5); RDW Standard Deviation 44.4 fL (36.4-46.3); Red Blood Count 3.72 M/uL (4.2-5.4); White Blood Count 2.93 K/uL (4.8-10.8)
[2019-08-28 05:09] LABS: Albumin Level 2.2 gm/dl (3.4-5.0); BUN Creatinine Ratio 15.9 (10-20); Calcium 7.9 mg/dl (8.5-10.1); Creatinine Clr Calc Pharmacy 17.6 ml/min; Est GFR (African American) 20.2; Est GFR (Non-African American) 17.4; Magnesium 1.9 mg/dl (1.8-2.4); Potassium 4.2 mmol/L (3.5-5.1)
[2019-08-28 05:17] LABS: Albumin Globulin Ratio 0.6 (0.9-2); Bilirubin,Total 0.3 mg/dl (0.2-1); Globulin 3.5 gm/dl (2.5-4.0); Total Protein 5.7 gm/dl (6.4-8.2); Troponin I 0.263 ng/ml (0-0.045)
[2019-08-28 05:33] LABS: Mean Platelet Volume 10.2 fL (7.4-10.4); Platelet Count 61 K/uL (130-400)
[2019-08-28 05:45] LABS: Basophils # (auto) 0.02 K/uL (0-0.2); Basophils % (auto) 0.7 %; Eosinophils # (auto) 0.03 K/uL (0-0.5); Immature Granulocytes # (auto) 0.03 K/uL (0.00-0.02); Lymphocytes # (auto) 1.01 K/uL (1.2-3.4); Lymphocytes % (auto) 34.5 %; Monocytes # (auto) 0.35 K/uL (0.11-0.59); Monocytes % (auto) 11.9 %; Neutrophils # (auto) 1.49 K/uL (1.4-6.5); Neutrophils % (auto) 50.9 %
[2019-08-28 06:34] LABS: Partial Thromboplastin Ratio 2.7
[2019-08-28 06:37] LABS: Partial Thromboplastin Time 74.3 Seconds (21.0-31.0)
--- NOTE | 2019-08-28 07:11 | Hospitalist Progress Note ---
Date of Service August 28, 2019 Assessment & Plan Admission and Anticipated Discharge Date Admission Date: August 26, 2019 Subjective Stefan went into rapid a fib. Asymptomatic. Received iv lopressor total 7.5mg. Still HR elevated. Started on iv cardizem drip, low dose iv heparin and echo and cardio consult. Results & Data Results & Data ([facility]) Vital Signs (Past 12 Hours) Vital Signs Temp Pulse Pulse Pulse Resp BP Pulse Ox 08/28/19 04:45 36.4 C L 69 18 121/74 100 08/28/19 01:09 37.2 C 128 H 18 113/76 95 08/28/19 00:03 37.2 C 110 H 18 117/74 08/27/19 23:20 38.3 C H 132 H 18 131/85 96 08/27/19 22:28 37.9 C H 129 H 151/81 H 90 08/27/19 22:25 135 H 134/87 91 08/27/19 22:20 154 H 168/103 H 87 L 08/27/19 22:15 140 H 160/90 H 97 08/27/19 20:00 36.5 C 79 20 155/74 H 100
[2019-08-28] MEDS: DONEPEZIL HCL 10 MG TAB PO SCH (07:49)
[2019-08-28] MEDS: MAGNESIUM OXIDE 400 MG TAB PO SCH (07:49)
[2019-08-28] MEDS: AMLODIPINE BESYLATE 5 MG TAB PO SCH (07:51)
[2019-08-28] MEDS: PANTOprazole 40 MG TAB PO SCH (07:51)
[2019-08-28] MEDS: GABAPENTIN 300 MG CAP PO SCH ×3 (07:51→21:25)
[2019-08-28] MEDS: DOXYCYCLINE HYCLATE 100 MG CAP PO SCH ×2 (07:52→21:25)
[2019-08-28] MEDS: SERTRALINE HCL 50 MG TABLET PO SCH (07:52)
[2019-08-28] MEDS: INSULIN ASPART 100 UNITS/ML 3 ML PEN SC SCH ×4 (07:53→20:48)
--- NOTE | 2019-08-28 09:13 | Electrocardiogram Report ---
Test Reason : Blood Pressure : / mmHG Vent. Rate : 142 BPM Atrial Rate : 178 BPM P-R Int : 000 ms QRS Dur : 092 ms QT Int : 290 ms P-R-T Axes : 000 060 110 degrees QTc Int : 446 ms Atrial fibrillation with rapid ventricular response Inferior infarct (cited on or before 26-AUG-2019) ST Depression consider lateral ischemia Abnormal ECG When compared with ECG of 26-AUG-2019 16:16, Atrial fibrillation has replaced Sinus rhythm ST now depressed in Lateral leads Confirmed by Kobi Castro ([id number]) on 08/28/2019 9:13:17 AM Referred By: REFERRED SELF Confirmed By:Kobi Castro
--- NOTE | 2019-08-28 09:37 | Cardiology Consultation ---
Date of Consultation August 28, 2019 Assessment & Plan (1) S/P TAVR (transcatheter aortic valve replacement): (2) CAD (coronary artery disease): (3) Acute hepatitis: (4) Bshbz-[id number] kidney injury: (5) Anaplasmosis: (6) Elevated troponin: 89-year-old woman with past medical history of TAVR placement for severe aortic stenosis and nonobstructive coronary artery disease presents to [facility] with anaplasmosis sepsis. She did go into atrial fibrillation with rapid ventricular response on the . She has been started on a diltiazem drip along with heparin anticoagulation and her rates are now well controlled. My hope is that with further treatment that she will go back into normal sinus rhythm. I will start her on low-dose metoprolol p.o. every 6 hours now and attempt to titrate off the Cardizem drip. Consideration may be given to initiation of antiarrhythmic therapy, however, would prefer to hold off until she has returned to baseline clinically. Unclear if she is a long-term anticoagulation candidate at this time will have to discuss options with family. Given the acute hepatitis I would be hesitant to start warfarin and given her age and dementia I do not believe she would be a good candidate for DOAC therapy. History of Present Illness Reason for Consultation: New onset atrial fibrillation. Requesting Physician: Dr. Kaye Attending Physician: Sam Kaye MD History of Present Illness It was my pleasure to see Mrs. Mclain in consultation today August 28, 2019. While she is not known to our cardiology practice I was able to access her [facility] cardiology records through [employer] EMR. She presented to [facility] emergency department via [facility] on 08/26/2019 with complaints of shortness of breath and weakness. She was found to be febrile with a temperature of 103. She was found to be suffering from acute hepatitis, thrombocytopenia and acute on chronic kidney injury. Further blood work revealed that her blood work was positive for Anplasmosis. She was started on appropriate antibiotics and admitted to telemetry. She then went into atrial fibrillation with rapid ventricular response late in the p.m. of 08/27/2019 and cardiology was consulted. She has been started on diltiazem and heparin drips with good response. Currently patient states that she is feeling much better since presentation. She notes that her strength has improved and she is not short of breath at rest. She denies any cardiac complaints of chest pain, palpitations, lightheadedness, dizziness or syncope. Outside cardiology records reviewed and no previous history of A. fib noted even after TAVR placement. Allergies Allergy/AdvReac Type Severity Reaction Status Date / Time No Known Allergies Allergy Verified 08/26/19 16:55 Home Medications Home Medications Medication Instructions Recorded Confirmed Type amlodipine 10 mg PO DAILY 08/26/19 08/26/19 History aspirin 81 mg PO DAILY 08/26/19 08/26/19 History atorvastatin 40 mg PO DAILY 08/26/19 08/26/19 History carboxymethylcellulose sodium 1 drp OPHTHALMIC (EYE) QID 08/26/19 08/26/19 History [Refresh Tears] celecoxib 200 mg PO DAILY 08/26/19 08/26/19 History donepezil 10 mg PO DAILY 08/26/19 08/26/19 History gabapentin 600 mg PO TID 08/26/19 08/26/19 History hydrocodone-acetaminophen 1 tab PO DAILY 08/26/19 08/26/19 History lorazepam 0.5 mg PO DAILY 08/26/19 08/26/19 History magnesium oxide 400 mg PO DAILY 08/26/19 08/26/19 History olmesartan 20 mg PO DAILY 08/26/19 08/26/19 History omeprazole 10 mg PO DAILY 08/26/19 08/26/19 History sertraline 150 mg PO DAILY 08/26/19 08/26/19 History sitagliptin 100 mg PO DAILY 08/26/19 08/26/19 History Patient History Medical History Aortic valve stenosis CAD (coronary artery disease) calcific coronary disease, 20 30% left main, 30 40% proximal LAD, long 80% diffuse distal LAD lesion, small diagonal lesion of 80%, circumflex 20%, RCA dominant with no obstructive disease. Medical therapy was recommended. Chronic pain syndrome CKD (chronic kidney disease) stage 3, GFR 30-59 ml/min Dementia Depression DJD (degenerative joint disease) GERD (gastroesophageal reflux disease) History of kidney stones HLD (hyperlipidemia) HTN (hypertension) NAFLD (nonalcoholic fatty liver disease) reported per PCP Office Neuropathy due to type 2 diabetes mellitus T2DM (type 2 diabetes mellitus) Surgical History History of appendectomy History of breast biopsy History of hysterectomy History of shoulder replacement 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 Gavino Cochran S/P TAVR (transcatheter aortic valve replacement) November 10, 2018 with a commercial 26 millimeter Medtronic CoreValve with use of sentinel cerebral protection device. Family History Mother Diabetes Kidney disease Brother Lung cancer Sister Breast cancer Daughter Cancer Renal cell CA Son Cancer Renal Cell CA Social History Preferred Language: Amharic Communication Ability: Effective Manager Clinic Required: No Beliefs That Will Affect Care: None Current Living Situation: Family Other Information That Helps Us Care for You: No Feels Safe at Home: Yes Safety Concerns: Feels Safe At This Time Smoking Status: Never smoker Hx Alcohol Use: No Hx Substance Use: No Review of Systems Review of Systems: All systems reviewed & are unremarkable except as noted in HPI & below Physical Exam Physical Exam: General: Awake, alert and oriented x 3. No acute distress. HEENT: Normocephalic, atraumatic. Pupils equal, round and reactive to light and accommodation. Extraocular muscles are intact. Anicteric sclera. Moist mucous membranes. Neck: No JVD. No bruit. Cardiovascular: irregularly irregular, unable to appreciate murmur, rub or gallop. Pulmonary: Clear to auscultation bilaterally. No rales, rhonchi, or wheezing. Abdomen: Bowel sounds x 4, soft. No rebound, guarding or tenderness. No organomegaly. Extremities: No clubbing, cyanosis or edema. +2 pedal pulses bilaterally. Skin: Warm and dry. Results & Data ([facility]) Vital Signs (Past 12 Hours) Vital Signs Temp Pulse Pulse Pulse Resp BP Pulse Ox 08/28/19 07:45 36.5 C 89 18 133/77 97 08/28/19 04:45 36.4 C L 69 18 121/74 100 08/28/19 01:09 37.2 C 128 H 18 113/76 95 08/28/19 00:03 37.2 C 110 H 18 117/74 08/27/19 23:20 38.3 C H 132 H 18 131/85 96 08/27/19 22:28 37.9 C H 129 H 151/81 H 90 08/27/19 22:25 135 H 134/87 91 08/27/19 22:20 154 H 168/103 H 87 L 08/27/19 22:15 140 H 160/90 H 97 Diagnostic Findings Echocardiogram from [facility] reported as: Result Date: 12/22/2018 Severe concentric left ventricular hypertrophy, small LV cavity with preserved left ventricular systolic function EF 55-60%. Grade 1 (mild) left ventricular diastolic dysfunction. Normal right ventricular size and function. Bioprosthetic aortic valve (26 mm MEDTRONIC CoreValve TAVR) is present with mild paravalvular leak. Mild mitral and tricuspid valve regurgitation. Small circumferential pericardial effusion with no echocardiographic evidence of tamponade physiology. Compared to prior echocardiogram, prosthetic aortic valve is now present. Pericardial effusion is slightly bigger.
--- NOTE | 2019-08-28 10:20 | Gastroenterology Progress Note ---
Date of Service August 28, 2019 Assessment & Plan Admission and Anticipated Discharge Date Admission Date: August 26, 2019 Supervising Physician Co-Signing Physician Notes GI had been consulted yesterday for elevated lft- ? anaplasmosis. clinically she appears stable. Would continue to trend lft's and inr tomorrow. Await aih serologies. Continue current mgmt. Subjective Patient seen and examined. No acute complaints. Alert and oriented. Review of Systems Review of Systems: All systems reviewed & are unremarkable except as noted in HPI & below Physical Exam Physical Exam: Obese female in nad Eyes: PERRL, conjunctivae normal, anicteric sclerae Cardiovascular: RRR, no murmur, no edema Gastrointestinal (Abdomen): normal bowel sounds, soft, nontender, no hepatosplenomegaly Obese abdomen Results & Data ([facility]) Vital Signs (Past 12 Hours) Vital Signs Temp Pulse Pulse Pulse Resp BP Pulse Ox 08/28/19 07:45 36.5 C 89 18 133/77 97 08/28/19 04:45 36.4 C L 69 18 121/74 100 08/28/19 01:09 37.2 C 128 H 18 113/76 95 08/28/19 00:03 37.2 C 110 H 18 117/74 08/27/19 23:20 38.3 C H 132 H 18 131/85 96 08/27/19 22:28 37.9 C H 129 H 151/81 H 90 08/27/19 22:25 135 H 134/87 91 08/27/19 22:20 154 H 168/103 H 87 L Downtrending lft's AIH markers pending
[2019-08-28] MEDS: dilTIAZem HCL 125 MG in DEXTROSE 5% 100 ML IV SCH ×2 (12:26→23:38)
[2019-08-28 13:11] LABS: Partial Thromboplastin Ratio 1.7
[2019-08-28 14:06] LABS: Partial Thromboplastin Time 48.8 Seconds (21.0-31.0)
--- NOTE | 2019-08-28 14:59 | Hospitalist Progress Note ---
Date of Service August 28, 2019 Assessment & Plan (1) Anaplasmosis: Presented with fever, generalized weakness and shortness of breath No definite history of tick bite Noted to have leukopenia with thrombocytopenia, anemia and transaminitis Blood film is positive for anaplasmosis Has been started with intravenous ceftriaxone and doxycycline Clinically better this morning (2) Atrial fibrillation with rapid ventricular response: Has history of PAF Noted to be in A. fib with RVR since last night Has been getting intravenous heparin and intravenous diltiazem Denies any symptoms Appreciate cardiology input and recommendation (3) S/P TAVR (transcatheter aortic valve replacement): No acute symptoms (4) Thrombocytopenia: Leukopenia, anemia and thrombocytopenia seem to be secondary to anaplasmosis We will monitor while in the hospital We will hold off any pharmacologic anticoagulation for now due to thrombus cytopenia Platelet count remains around 60s with leukopenia-borderline (5) Fever: No definite pneumonia but may have pneumonitis We will continue with intravenous antibiotic for now Has had fever last night of 38 F (6) Acute hepatitis: Has significant transaminitis without any obstructive features Appreciate GI input and recommendation LFTs are seems to be improving Avoid any medications that can impair liver function Liver functions have been improving Awaiting further test results (7) [id number] kidney injury: Patient with CKD III historically. Creatinine slightly worse than baseline. 1.5--> 1.88 today. Gentle IV Hydration. Continue to monitor I&Os. Possibly due to current illness. Check Urine culture. Hold Celebrex- feel that this likely should be discontinued on discharge. Kidney function has not improved yet Advised more fluid intake Renal function has been worsening with creatinine at 2.39 today Advised to drink more fluid and will give more intravenous fluid (8) Troponin level elevated: Doubt any acute cardiac injury and/or ACS Mild elevation of troponin could be secondary to renal impairment Patient denies any cardiac symptoms (9) SOB (shortness of breath): No definite pneumonia and/or CHF on CAT scan Has questionable groundglass opacities Shortness of breath has been improving Will need follow-up imaging studies for lung lesions (10) Weakness: (11) Lesion of right [place] kidney: Strong family history of Renal Cell CA. Appreciate urology input and recommendation Will get ultrasound of the renal system to evaluate the lesion further (12) Recurrent falls: (13) Pulmonary lesion: (14) Ground glass opacity present on imaging of lung: Patient does not have history of tobacco use. Uncertain etiology of pulmonary 1 cm lesion. With ground glass opacity, fever, weakness, and SOB, will start IV CTX prophylactically as well for possible CAP. COVID negative. Continue PRN O2 to maintain SaO2 >88%. (15) T2DM (type 2 diabetes mellitus): Hold sitagliptin. Insulin protocol. (16) HTN (hypertension): Hold Olmesartan. Continue amlodipine. Blood pressure remains in the lower side of normal We will continue holding olmesartan (17) Dementia: (18) GERD (gastroesophageal reflux disease): Continue omeprazole. (19) Cervical stenosis of spinal canal: Seems unlikely to be causing current symptoms. Follow up as needed as outpatient. Patient's daughter, Jonelle is POA. Phone number is [phone]. Updating her daughter almost daily (20) Renal mass: Admission and Anticipated Discharge Date Admission Date: August 26, 2019 Subjective The patient was seen and examined in ICU She has been feeling better since admission Remains weak and lethargic 08/28/2019 The patient was seen and examined in telemetry unit She went into A. fib with RVR last night and required Cardizem drip and heparin drip She has a significant cardiac history including TAVR Denies any chest pain and no palpitation Clinically feeling a lot better Review of Systems Review of Systems: All systems reviewed and are unremarkable except as noted below Constitutional: + body aches, + fatigue and + weakness Musculoskeletal: Generalized aches and pains and neck pain Neurologic: + headache(s) Pleasantly confused Physical Exam Physical Exam: Lying in bed comfortably Constitutional: well developed, well nourished, + ill appearing and + obese; no acute distress And anxious Eyes: PERRL, conjunctivae normal, anicteric sclerae ENMT: external ear and nose normal, oropharynx normal Neck: trachea midline, no thyromegaly Respiratory: normal respiratory effort; no respiratory distress Auscultation: lungs clear to auscultation bilaterally Cardiovascular: Rate/Rhythm: + irregularly irregular Heart Sounds: no murmur Gastrointestinal (Abdomen): Inspection/Auscultation: abdomen normal to inspection; abdomen not distended Percussion/Palpation: abdomen soft; abdomen nontender Musculoskeletal: No acute arthritis involving any joints Skin: no rashes Neurologic: moves all extremities; no focal motor deficits Alert, awake and oriented x3 Lymphatic: no cervical or axillary lymphadenopathy Results & Data Results & Data ([facility]) Vital Signs (Past 12 Hours) Vital Signs Temp Pulse Resp BP Pulse Ox 08/28/19 07:45 36.5 C 89 18 133/77 97 08/28/19 04:45 36.4 C L 69 18 121/74 100 Laboratory Results Short CBC 08/28/19 Range/Units 04:42 WBC 2.93 L (4.8-10.8) K/uL Hgb 10.2 L (12.0-16.0) g/dL Hct 30.3 L (37-47) % Plt Count 61 L (130-400) K/uL BMP 08/28/19 04:42 Sodium 136 Potassium 4.2 Chloride 104 Carbon Dioxide 25 BUN 38 H Creatinine 2.39 H D Glucose 167 H Calcium 7.9 L Cardiac Enzymes 08/27/19 08/28/19 08/28/19 Range/Units 22:49 04:42 11:00 Troponin I 0.318 H* 0.263 H* 0.248 H* (0-0.045) ng/ml Liver Function 08/28/19 Range/Units 04:42 Total Bilirubin 0.3 (0.2-1) mg/dl AST 112 H (15-37) U/L ALT 208 H (12-78) U/L Alkaline Phosphatase 125 H (45-117) U/L Albumin 2.2 L (3.4-5.0) gm/dl Medications Administered Current Inpatient Medications Acetaminophen (Tylenol) 1,000 mg PO Q8H PRN PRN Reason: Fever Stop: 09/26/19 10:51 Last Admin: 08/27/19 22:32 Dose: 1,000 mg Documented by: Amlodipine Besylate (Norvasc) 10 mg PO DAILY WIL Stop: 09/26/19 08:59 Last Admin: 08/28/19 07:51 Dose: 10 mg Documented by: Dextrose (Dextrose 50%) 25 - 50 ml IV UD PRN; Protocol PRN Reason: Hypoglycemia Protocol Stop: 09/25/19 18:17 Donepezil HCl (Aricept) 10 mg PO DAILY WIL Stop: 09/26/19 08:59 Last Admin: 08/28/19 07:49 Dose: 10 mg Documented by: Doxycycline Hyclate (Vibramycin) 100 mg PO BID WIL Stop: 09/02/19 20:59 Last Admin: 08/28/19 07:52 Dose: 100 mg Documented by: Gabapentin (Neurontin) 300 mg PO TID [facility] Stop: 09/26/19 13:59 Last Admin: 08/28/19 14:53 Dose: 300 mg Documented by: Glucagon (Glucagen) 1 mg SQ UD PRN; Protocol PRN Reason: Hypoglycemia Protocol Stop: 09/25/19 18:17 Glucose (Dex4 Glucose) 4 - 8 tabs PO UD PRN; Protocol PRN Reason: Hypoglycemia Protocol Stop: 09/25/19 18:17 Glucose (Glucose 40%) 15 - 30 gm PO UD PRN; Protocol PRN Reason: Hypoglycemia Protocol Stop: 09/25/19 18:17 Hydralazine HCl (Hydralazine Hcl) 5 mg IV Q6 PRN PRN Reason: Hypertension Stop: 09/25/19 18:44 Last Admin: 08/27/19 03:29 Dose: 5 mg Documented by: Ceftriaxone Sodium 2,000 mg/ (Dextrose) 50 mls @ 100 mls/hr IV Q24H [facility]; Protocol Stop: 09/02/19 15:59 Last Infusion: 08/27/19 17:26 Dose: Infused Documented by: Diltiazem HCl 125 mg/ Dextrose 125 mls @ 10 mls/hr IV .[id number] [facility]; Protocol Stop: 09/26/19 22:44 Last Admin: 08/28/19 12:26 Dose: 10 mg/hr, 10 mls/hr Documented by: Heparin Sodium/Dextrose (Heparin Sodium/Dextrose) 25,000 units in 500 mls @ 14 mls/hr IV .Q24H [facility]; Protocol Stop: 09/26/19 22:44 Last Titration: 08/28/19 06:38 Dose: 700 units/hr, 14 mls/hr Documented by: Insulin Aspart (Novolog Flexpen) 0 units SC ACHS [facility] Stop: 09/25/19 20:59 Last Admin: 08/28/19 12:27 Dose: 3 units Documented by: Magnesium Oxide (Mag-Ox) 400 mg PO DAILY [facility] Stop: 09/26/19 08:59 Last Admin: 08/28/19 07:49 Dose: 400 mg Documented by: Miscellaneous (Carbohydrates For Hypoglycemia) 15 - 30 gm PO UD PRN PRN Reason: Hypoglycemia Protocol Stop: 09/25/19 18:17 Ondansetron HCl (Zofran) 4 mg IV Q6H PRN PRN Reason: Nausea Stop: 09/25/19 16:08 Pantoprazole Sodium (Protonix) 40 mg PO DAILY [facility] Stop: 09/26/19 08:59 Last Admin: 08/28/19 07:51 Dose: 40 mg Documented by: Sertraline HCl (Zoloft) 150 mg PO DAILY [facility] Stop: 09/26/19 08:59 Last Admin: 08/28/19 07:52 Dose: 150 mg Documented by:
[2019-08-28] MEDS: SODIUM CHLORIDE 0.9% 1000ML 1,000 ML IV SCH (16:40)
[2019-08-28] MEDS: cefTRIAXone SODIUM 2,000 MG in DEXTROSE 5% 50 ML IV SCH (17:28)
[2019-08-28] MEDS: HEPARIN SODIUM/DEXTROSE 25,000 UNITS/500 ML BAG IV SCH (23:39)
[2019-08-29] MEDS: SODIUM CHLORIDE 0.9% 1000ML 1,000 ML IV SCH (04:38)
[2019-08-29 06:50] LABS: Hematocrit (blood only) 30.2 % (37-47); Hemoglobin 9.8 g/dL (12.0-16.0); Mean Corpuscular Hemoglobin 26.6 pg (25-34); Mean Corpuscular Hgb Conc 32.5 g/dL (32-36); Mean Corpuscular Volume 81.8 fL (80-100); RDW Coefficient of Variation 14.7 % (11.5-14.5); Red Blood Count 3.69 M/uL (4.2-5.4); White Blood Count 4.35 K/uL (4.8-10.8)
[2019-08-29 06:56] LABS: Mean Platelet Volume 10.7 fL (7.4-10.4); Platelet Count 76 K/uL (130-400)
[2019-08-29 07:04] LABS: Partial Thromboplastin Ratio 1.6; Partial Thromboplastin Time 44.8 Seconds (21.0-31.0)
[2019-08-29 07:18] LABS: Albumin Level 2.1 gm/dl (3.4-5.0); BUN Creatinine Ratio 18.6 (10-20); Calcium 8.3 mg/dl (8.5-10.1); Creatinine Clr Calc Pharmacy 18.9 ml/min; Est GFR (African American) 22.4; Est GFR (Non-African American) 19.3; Magnesium 1.8 mg/dl (1.8-2.4); Potassium 3.9 mmol/L (3.5-5.1)
[2019-08-29 07:21] LABS: Albumin Globulin Ratio 0.6 (0.9-2); Bilirubin,Total 0.3 mg/dl (0.2-1); Globulin 3.5 gm/dl (2.5-4.0); Total Protein 5.6 gm/dl (6.4-8.2)
[2019-08-29] MEDS ORDERED: HEPARIN IV BOLUS 3,000 UNITS in SYRINGE 0 ML IV ONE (07:30)
[2019-08-29] MEDS: DOXYCYCLINE HYCLATE 100 MG CAP PO SCH ×2 (07:57→20:35)
[2019-08-29] MEDS: GABAPENTIN 300 MG CAP PO SCH ×3 (07:58→20:35)
[2019-08-29] MEDS: SERTRALINE HCL 50 MG TABLET PO SCH (07:58)
[2019-08-29] MEDS: AMLODIPINE BESYLATE 5 MG TAB PO SCH (07:59)
[2019-08-29] MEDS: MAGNESIUM OXIDE 400 MG TAB PO SCH (07:59)
[2019-08-29] MEDS: PANTOprazole 40 MG TAB PO SCH (07:59)
[2019-08-29] MEDS: DONEPEZIL HCL 10 MG TAB PO SCH (07:59)
[2019-08-29] MEDS: INSULIN ASPART 100 UNITS/ML 3 ML PEN SC SCH ×4 (08:00→20:46)
[2019-08-29 08:02] LABS: Basophils # (auto) 0.02 K/uL (0-0.2); Basophils % (auto) 0.5 %; Eosinophils # (auto) 0.11 K/uL (0-0.5); Eosinophils % (auto) 2.5 %; Immature Granulocytes # (auto) 0.01 K/uL (0.00-0.02); Immature Granulocytes % (auto) 0.2 %; Lymphocytes # (auto) 1.86 K/uL (1.2-3.4); Lymphocytes % (auto) 42.8 %; Monocytes # (auto) 0.56 K/uL (0.11-0.59); Monocytes % (auto) 12.9 %; Neutrophils # (auto) 1.79 K/uL (1.4-6.5); Neutrophils % (auto) 41.1 %; RBC Morphology Unremarkable
--- NOTE | 2019-08-29 09:15 | Gastroenterology Progress Note ---
Date of Service August 29, 2019 Assessment & Plan Admission and Anticipated Discharge Date Admission Date: August 26, 2019 Supervising Physician Co-Signing Physician Notes Elevated lft's - appear to be improving, [facility], on treatment for anaplasmosis- would continue for now. Would assess cardiac status- if any evidence of chf - possibility she may have a component of congestive hepatopathy which will improve with diuresis if left sided heart failure, volume if right sided heart failure. Subjective No acute complaints Tired this morning Review of Systems Review of Systems: All systems reviewed & are unremarkable except as noted in HPI & below Physical Exam Physical Exam: Obese fm in nad Respiratory: normal respiratory effort and + retractions; no respiratory distress and no labored breathing Gastrointestinal (Abdomen): normal bowel sounds, soft, nontender, no hepatosplenomegaly Results & Data ([facility]) Vital Signs (Past 12 Hours) Vital Signs Temp Pulse Resp BP Pulse Ox 08/29/19 08:07 36.4 C L 84 18 150/75 H 96 08/29/19 04:08 36.9 C 85 18 138/79 91 08/28/19 23:41 36.9 C 82 18 144/79 H 93 Downtrending lft's
--- NOTE | 2019-08-29 12:00 | Ultrasound Report ---
US renal/blad retro comp HISTORY: 89 years-old Female Renal mass/cyst lesion of the right kidney COMPARISON: CT abdomen and pelvis 08/26/2019 TECHNIQUE: Multiple real-time sonographic images of the kidneys and urinary bladder were obtained ass essing grayscale appearance and color flow FINDINGS: Right kidney measures 10.0 cm in length and demonstrates diffuse cortical thinning. Increased echogen icity of the renal parenchyma. Heterogeneous partially calcified mass centered within the renal pelvi s is redemonstrated along with collecting system and renal pelvis dilation. Increased echogenicity with diffuse cortical thinning of the left kidney which measures 11.2 cm in le ngth. No left-sided hydronephrosis. Decompressed urinary bladder with Man catheter. Study is limited secondary to patient condition and body habitus. IMPRESSION: 1. Limited exam as above. 2. 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 3. Increased echogenicity of the bilateral kidneys suggests chronic medical renal disease. 4. Decompressed urinary bladder with Man catheter. ACT 112: Negative or not required by law. The above report was generated using voice recognition software. It may contain grammatical, syntax o r spelling errors. Electronically signed by: Bud Gusman M.D. 08/29/2019 11:59 AM
--- NOTE | 2019-08-29 12:34 | Hospitalist Progress Note ---
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 fib with RVR since last night Has been getting intravenous heparin and intravenous diltiazem Denies any symptoms Appreciate cardiology input and recommendation Heart rate seems to be under control (3) S/P TAVR (transcatheter aortic valve replacement): No acute symptoms (4) Thrombocytopenia: Leukopenia, anemia and thrombocytopenia seem to be secondary to anaplasmosis We will monitor while in the hospital We will hold off any pharmacologic anticoagulation for now due to thrombus cytopenia Platelet count remains around 60s with leukopenia-borderline Platelet counts have been improving (5) Fever: No definite pneumonia but may have pneumonitis We will continue with intravenous antibiotic for now Has had fever last night of 38 F No more fever since yesterday (6) Acute hepatitis: Has significant transaminitis without any obstructive features Appreciate GI input and recommendation LFTs are seems to be improving Avoid any medications that can impair liver function Liver functions have been improving Awaiting further test results-serological tests are pending (7) Arlbl-vp-kidfaqu kidney injury: Patient with CKD III historically. Creatinine slightly worse than baseline. 1.5--> 1.88 today. Gentle IV Hydration. Continue to monitor I&Os. Possibly due to current illness. Check Urine culture. Hold Celebrex- feel that this likely should be discontinued on discharge. Kidney function has not improved yet Advised more fluid intake Renal function has been worsening with creatinine at 2.39 today Advised to drink more fluid and will give more intravenous fluid Creatinine is better today with level of 2.19 (8) Troponin level elevated: Doubt any acute cardiac injury and/or ACS Mild elevation of troponin could be secondary to renal impairment Patient denies any cardiac symptoms (9) SOB (shortness of breath): No definite pneumonia and/or CHF on CAT scan Has questionable groundglass opacities Shortness of breath has been improving Will need follow-up imaging studies for lung lesions (10) Weakness: (11) Lesion of right [place] kidney: Strong family history of Renal Cell CA. 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 (12) Recurrent falls: (13) Pulmonary lesion: (14) Ground glass opacity present on imaging of lung: Patient does not have history of tobacco use. Uncertain etiology of pulmonary 1 cm lesion. With ground glass opacity, fever, weakness, and SOB, will start IV CTX prophylactically as well for possible CAP. COVID negative. Continue PRN O2 to maintain SaO2 >88%. (15) T2DM (type 2 diabetes mellitus): Hold sitagliptin. Insulin protocol. (16) HTN (hypertension): Hold Olmesartan. Continue amlodipine. Blood pressure remains in the lower side of normal We will continue holding olmesartan (17) Dementia: (18) GERD (gastroesophageal reflux disease): Continue omeprazole. (19) Cervical stenosis of spinal canal: Seems unlikely to be causing current symptoms. Follow up as needed as outpatient. Patient's daughter, Jonelle is ISAIAS. Phone number is [phone]. Updating her daughter almost daily (20) Renal mass: Admission and Anticipated Discharge Date Admission Date: August 26, 2019 Subjective The patient was seen and examined in ICU She has been feeling better since admission Remains weak and lethargic 08/28/2019 The patient was seen and examined in telemetry unit She went into A. fib with RVR last night and required Cardizem drip and heparin drip She has a significant cardiac history including TAVR Denies any chest pain and no palpitation Clinically feeling a lot better 08/29/2019 The patient was seen and examined in telemetry unit plan He has been feeling much better today and denies any significant symptoms except weakness Heart heart rate seems to be under control Review of Systems Review of Systems: All systems reviewed and are unremarkable except as noted below Constitutional: + body aches, + fatigue and + weakness Musculoskeletal: Generalized aches and pains and neck pain Neurologic: + headache(s) Physical Exam Physical Exam: Lying in bed comfortably Constitutional: well developed, well nourished and + obese; no acute distress and not ill appearing Eyes: PERRL, conjunctivae normal, anicteric sclerae ENMT: external ear and nose normal, oropharynx normal Neck: trachea midline, no thyromegaly Respiratory: normal respiratory effort; no respiratory distress Auscultation: lungs clear to auscultation bilaterally Cardiovascular: Rate/Rhythm: + irregularly irregular Heart Sounds: no murmur Gastrointestinal (Abdomen): Inspection/Auscultation: abdomen normal to inspection; abdomen not distended Percussion/Palpation: abdomen soft; abdomen nontender Musculoskeletal: No acute arthritis involving any joints Skin: no rashes Neurologic: moves all extremities; no focal motor deficits March Lymphatic: no cervical or axillary lymphadenopathy Results & Data Results & Data ([facility]) Vital Signs (Past 12 Hours) Vital Signs Temp Pulse Resp BP Pulse Ox 08/29/19 11:23 36.7 C 83 18 127/68 95 08/29/19 08:07 36.4 C L 84 18 150/75 H 96 08/29/19 04:08 36.9 C 85 18 138/79 91 Laboratory Results Short CBC 08/29/19 Range/Units 06:23 WBC 4.35 L (4.8-10.8) K/uL Hgb 9.8 L (12.0-16.0) g/dL Hct 30.2 L (37-47) % Plt Count 76 L (130-400) K/uL BMP 08/29/19 06:23 Sodium 135 L Potassium 3.9 Chloride 104 Carbon Dioxide 23 BUN 41 H Creatinine 2.19 H Glucose 134 H Calcium 8.3 L Liver Function 08/29/19 Range/Units 06:23 Total Bilirubin 0.3 (0.2-1) mg/dl AST 47 H (15-37) U/L ALT 133 H (12-78) U/L Alkaline Phosphatase 105 (45-117) U/L Albumin 2.1 L (3.4-5.0) gm/dl Medications Administered Current Inpatient Medications Acetaminophen (Tylenol) 1,000 mg PO Q8H PRN PRN Reason: Fever Stop: 09/26/19 10:51 Last Admin: 08/27/19 22:32 Dose: 1,000 mg Documented by: Amlodipine Besylate (Norvasc) 10 mg PO DAILY WIL Stop: 09/26/19 08:59 Last Admin: 08/29/19 07:59 Dose: 10 mg Documented by: Dextrose (Dextrose 50%) 25 - 50 ml IV UD PRN; Protocol PRN Reason: Hypoglycemia Protocol Stop: 09/25/19 18:17 Donepezil HCl (Aricept) 10 mg PO DAILY WIL Stop: 09/26/19 08:59 Last Admin: 08/29/19 07:59 Dose: 10 mg Documented by: Doxycycline Hyclate (Vibramycin) 100 mg PO BID WIL Stop: 09/02/19 20:59 Last Admin: 08/29/19 07:57 Dose: 100 mg Documented by: Gabapentin (Neurontin) 300 mg PO TID WIL Stop: 09/26/19 13:59 Last Admin: 08/29/19 07:58 Dose: 300 mg Documented by: Glucagon (Glucagen) 1 mg SQ UD PRN; Protocol PRN Reason: Hypoglycemia Protocol Stop: 09/25/19 18:17 Glucose (Dex4 Glucose) 4 - 8 tabs PO UD PRN; Protocol PRN Reason: Hypoglycemia Protocol Stop: 09/25/19 18:17 Glucose (Glucose 40%) 15 - 30 gm PO UD PRN; Protocol PRN Reason: Hypoglycemia Protocol Stop: 09/25/19 18:17 Hydralazine HCl (Hydralazine Hcl) 5 mg IV Q6 PRN PRN Reason: Hypertension Stop: 09/25/19 18:44 Last Admin: 08/27/19 03:29 Dose: 5 mg Documented by: Ceftriaxone Sodium 2,000 mg/ (Dextrose) 50 mls @ 100 mls/hr IV Q24H WIL; Protocol Stop: 09/02/19 15:59 Last Infusion: 08/28/19 18:00 Dose: Infused Documented by: Diltiazem HCl 125 mg/ Dextrose 125 mls @ 10 mls/hr IV .[id number] WIL; Protocol Stop: 09/26/19 22:44 Last Titration: 08/29/19 07:02 Dose: 10 mg/hr, 10 mls/hr Documented by: Heparin Sodium/Dextrose (Heparin Sodium/Dextrose) 25,000 units in 500 mls @ 15 mls/hr IV .Q24H WIL; Protocol Stop: 09/26/19 22:44 Last Titration: 08/29/19 07:17 Dose: 750 units/hr, 15 mls/hr Documented by: Sodium Chloride (Nss 1000ml) 1,000 mls @ 80 mls/hr IV .[id number] WIL Stop: 08/29/19 16:14 Last Admin: 08/29/19 04:38 Dose: 80 mls/hr Documented by: Insulin Aspart (Novolog Flexpen) 0 units SC ACHS WIL Stop: 09/25/19 20:59 Last Admin: 08/29/19 08:00 Dose: 2 units Documented by: Magnesium Oxide (Mag-Ox) 400 mg PO DAILY WIL Stop: 09/26/19 08:59 Last Admin: 08/29/19 07:59 Dose: 400 mg Documented by: Miscellaneous (Carbohydrates For Hypoglycemia) 15 - 30 gm PO UD PRN PRN Reason: Hypoglycemia Protocol Stop: 09/25/19 18:17 Ondansetron HCl (Zofran) 4 mg IV Q6H PRN PRN Reason: Nausea Stop: 09/25/19 16:08 Pantoprazole Sodium (Protonix) 40 mg PO DAILY WIL Stop: 09/26/19 08:59 Last Admin: 08/29/19 07:59 Dose: 40 mg Documented by: Sertraline HCl (Zoloft) 150 mg PO DAILY [facility] Stop: 09/26/19 08:59 Last Admin: 08/29/19 07:58 Dose: 150 mg Documented by:
[2019-08-29] MEDS: dilTIAZem HCL 125 MG in DEXTROSE 5% 100 ML IV SCH (12:45)
--- NOTE | 2019-08-29 14:10 | Cardiology Progress Note ---
Date of Service August 29, 2019 Assessment & Plan (1) S/P TAVR (transcatheter aortic valve replacement): (2) CAD (coronary artery disease): (3) Acute hepatitis: (4) Typyj-qh-dlsdzuq kidney injury: (5) Anaplasmosis: (6) Elevated troponin: 89-year-old woman with past medical history of TAVR placement for severe aortic stenosis and nonobstructive coronary artery disease presents to [facility] with anaplasmosis sepsis. She did go into atrial fibrillation with rapid ventricular response on the . She has been started on a diltiazem drip along with heparin anticoagulation and her rates are now well controlled. My hope is that with further treatment that she will go back into normal sinus rhythm. I will start her on low-dose metoprolol p.o. every 6 hours now and attempt to titrate off the Cardizem drip. Consideration may be given to initiation of antiarrhythmic therapy, however, would prefer to hold off until she has returned to baseline clinically. Unclear if she is a long-term anticoagulation candidate at this time will have to discuss options with family. Given the acute hepatitis I would be hesitant to start warfarin and given her age and dementia I do not believe she would be a good candidate for DOAC therapy. Obviously, would not be a candidate for cardioversion should she not be able to tolerate anticoagulation for at least 30 days afterwards. Subjective Patient seen and examined, chart reviewed. Clinically states that she feels well. Denies any chest pain, shortness of breath, palpitations, lightheadedness, dizziness or syncope. Telemetry reviewed: Atrial fibrillation with widely variable rate response. Review of Systems Review of Systems: All systems reviewed & are unremarkable except as noted in HPI & below Physical Exam Physical Exam: General: Awake, alert and oriented x 3. No acute distress. HEENT: Normocephalic, atraumatic. Pupils equal, round and reactive to light and accommodation. Extraocular muscles are intact. Anicteric sclera. Moist mucous membranes. Neck: No JVD. No bruit. Cardiovascular: irregularly irregular, unable to appreciate murmur, rub or gallop. Pulmonary: Clear to auscultation bilaterally. No rales, rhonchi, or wheezing. Abdomen: Bowel sounds x 4, soft. No rebound, guarding or tenderness. No organomegaly. Extremities: No clubbing, cyanosis or edema. +2 pedal pulses bilaterally. Skin: Warm and dry. Results & Data Vital Signs (Past 12 Hours) Vital Signs Temp Pulse Resp BP Pulse Ox 08/29/19 11:23 36.7 C 83 18 127/68 95 08/29/19 08:07 36.4 C L 84 18 150/75 H 96 08/29/19 04:08 36.9 C 85 18 138/79 91
[2019-08-29 15:16] LABS: Partial Thromboplastin Ratio 1.7
[2019-08-29] MEDS: dilTIAZem HCL 30 MG TAB PO SCH ×2 (15:41→20:36)
[2019-08-29] MEDS: cefTRIAXone SODIUM 2,000 MG in DEXTROSE 5% 50 ML IV SCH (16:05)
[2019-08-29 17:24] LABS: Ehrlichia chaff IgG Ab <1:64 (<1:64); Ehrlichia chaff IgM Ab <1:20 (<1:20); Hepatitis A Antibody IgM NON-REACTIVE (NON-REACTIVE); Hepatitis B Core Antibody IgM NON-REACTIVE (NON-REACTIVE)
[2019-08-29] MEDS: METOPROLOL TARTRATE 25 MG TAB PO SCH ×2 (17:46→23:52)
[2019-08-29] MEDS: ARTIFICIAL TEARS OPB SCH ×2 (17:47→20:37)
[2019-08-29] MEDS: Heparin IV Low Dose *NO* Bolus IV SCH ×2 (19:09→19:10)
[2019-08-30] MEDS: dilTIAZem HCL 125 MG in DEXTROSE 5% 100 ML IV SCH (00:23)
[2019-08-30] MEDS: HEPARIN SODIUM/DEXTROSE 25,000 UNITS/500 ML BAG IV SCH ×2 (05:34→08:02)
[2019-08-30] MEDS: METOPROLOL TARTRATE 25 MG TAB PO SCH ×3 (05:34→17:15)
[2019-08-30 06:34] LABS: Hematocrit (blood only) 30.8 % (37-47); Hemoglobin 10.4 g/dL (12.0-16.0); Mean Corpuscular Hemoglobin 27.2 pg (25-34); Mean Corpuscular Hgb Conc 33.8 g/dL (32-36); Mean Corpuscular Volume 80.6 fL (80-100); Mean Platelet Volume 10.6 fL (7.4-10.4); Platelet Count 94 K/uL (130-400); RDW Coefficient of Variation 14.6 % (11.5-14.5); RDW Standard Deviation 42.5 fL (36.4-46.3); Red Blood Count 3.82 M/uL (4.2-5.4); White Blood Count 4.52 K/uL (4.8-10.8)
[2019-08-30 06:46] LABS: Partial Thromboplastin Ratio 1.4; Partial Thromboplastin Time 37.9 Seconds (21.0-31.0)
[2019-08-30 07:08] LABS: Basophils # (auto) 0.03 K/uL (0-0.2); Basophils % (auto) 0.7 %; Eosinophils # (auto) 0.19 K/uL (0-0.5); Eosinophils % (auto) 4.2 %; Immature Granulocytes # (auto) 0.03 K/uL (0.00-0.02); Immature Granulocytes % (auto) 0.7 %; Lymphocytes # (auto) 1.66 K/uL (1.2-3.4); Lymphocytes % (auto) 36.7 %; Monocytes # (auto) 0.43 K/uL (0.11-0.59); Monocytes % (auto) 9.5 %; Neutrophils # (auto) 2.18 K/uL (1.4-6.5); Neutrophils % (auto) 48.2 %
[2019-08-30 07:16] LABS: Albumin Level 2.2 gm/dl (3.4-5.0); BUN Creatinine Ratio 17.5 (10-20); Calcium 8.1 mg/dl (8.5-10.1); Creatinine Clr Calc Pharmacy 19.2 ml/min; Est GFR (African American) 22.9; Est GFR (Non-African American) 19.8; Magnesium 1.8 mg/dl (1.8-2.4)
[2019-08-30 07:23] LABS: Albumin Globulin Ratio 0.6 (0.9-2); Bilirubin,Total 0.3 mg/dl (0.2-1); Globulin 3.8 gm/dl (2.5-4.0); Phosphorus 3.9 mg/dl (2.5-4.9)
[2019-08-30] MEDS ORDERED: HEPARIN IV BOLUS 4,500 UNITS in SYRINGE 0 ML IV ONE ×2 (07:30→15:30)
[2019-08-30] MEDS: MAGNESIUM OXIDE 400 MG TAB PO SCH (07:55)
[2019-08-30] MEDS: SERTRALINE HCL 50 MG TABLET PO SCH (07:55)
[2019-08-30] MEDS: DOXYCYCLINE HYCLATE 100 MG CAP PO SCH ×2 (07:55→20:24)
[2019-08-30] MEDS: DONEPEZIL HCL 10 MG TAB PO SCH (07:55)
[2019-08-30] MEDS: ARTIFICIAL TEARS OPB SCH ×4 (07:56→20:22)
[2019-08-30] MEDS: dilTIAZem HCL 30 MG TAB PO SCH ×3 (07:56→20:23)
[2019-08-30] MEDS: PANTOprazole 40 MG TAB PO SCH (07:56)
[2019-08-30] MEDS: INSULIN ASPART 100 UNITS/ML 3 ML PEN SC SCH ×4 (07:57→20:26)
[2019-08-30] MEDS: GABAPENTIN 300 MG CAP PO SCH ×3 (07:58→20:23)
--- NOTE | 2019-08-30 09:03 | Gastroenterology Progress Note ---
Date of Service August 30, 2019 Assessment & Plan (1) Transaminitis: 89 year old female with suspected anaplasmosis on ceftriaxone, doxycycline w/ downtrending LFTs w/o GI symptomatology Continue treatment for anaplasmosis Continue to trend LFTs follow up liver serology Will sign off. Thank you for allowing us to participate in the care of this patient. Please call with any acute changes, questions or concerns. Please see addendum below with additional recommendation from my supervising physician. Admission and Anticipated Discharge Date Admission Date: August 26, 2019 Supervising Physician Co-Signing Physician Notes Attg add: I interviewed and examined pt, reviewed chart and labs. Pt with improving LFT's. She is asymptomatic. Rec continued follow up LFT"s by primary team. If LFT"s rise again, please conisder MRCP. Please call with questions. Subjective Feeling well. No abd pain. No nausea, vomiting. Tolerating PO without any concerns. Review of Systems Constitutional: no fever, no chills and no fatigue Respiratory: no cough and no dyspnea Cardiovascular: no chest pain and no dyspnea Gastrointestinal: no abdominal pain, no coffee ground emesis, no hematemesis, no blood in stools and no melena Physical Exam Constitutional: no acute distress Respiratory: normal respiratory effort Cardiovascular: Rate/Rhythm: + tachycardic Skin: no rashes, warm and dry Results & Data ([facility]) Vital Signs (Past 12 Hours) Vital Signs Temp Pulse Pulse Resp BP Pulse Ox 08/30/19 07:51 36.7 C 107 H 18 153/82 H 96 08/30/19 03:43 36.5 C 107 H 19 146/87 H 94 08/29/19 23:49 36.5 C 74 19 150/77 H 95 Laboratory Results 08/30/19 08/30/19 08/30/19 Range/Units 07:24 06:18 06:18 WBC (4.8-10.8) K/uL RBC (4.2-5.4) M/uL Hgb (12.0-16.0) g/dL Hct (37-47) % MCV (80-100) fL MCH (25-34) pg MCHC (32-36) g/dL RDW Std Deviation (36.4-46.3) fL RDW Coeff of Mary (11.5-14.5) % Plt Count (130-400) K/uL MPV (7.4-10.4) fL Immature Gran % (Auto) % Neut % (Auto) % Lymph % (Auto) % Emmons % (Auto) % Eos % (Auto) % Baso % (Auto) % Immature Gran # (Auto) (0.00-0.02) K/uL Neut # (Auto) (1.4-6.5) K/uL Lymph # (Auto) (1.2-3.4) K/uL Emmons # (Auto) (0.11-0.59) K/uL Eos # (Auto) (0-0.5) K/uL Baso # (Auto) (0-0.2) K/uL APTT 37.9 H (21.0-31.0) Seconds PTT Ratio 1.4 Sodium 138 (136-145) mmol/L Potassium 4.0 (3.5-5.1) mmol/L Chloride 106 (98-107) mmol/L Carbon Dioxide 25 (21-32) mmol/L Anion Gap 7.0 (3-11) BUN 38 H (7-18) mg/dl Creatinine 2.15 H (0.6-1.2) mg/dl Est Cr Clr Drug Dosing 19.2 ml/min Est GFR ( Amer) 22.9 Est GFR (Non-Af Amer) 19.8 BUN/Creatinine Ratio 17.5 (10-20) Glucose 144 H (70-99) mg/dl POC Glucose 184 H (70-99) mg/dl Calcium 8.1 L (8.5-10.1) mg/dl Phosphorus 3.9 (2.5-4.9) mg/dl Magnesium 1.8 (1.8-2.4) mg/dl Total Bilirubin 0.3 (0.2-1) mg/dl AST 25 (15-37) U/L ALT 99 H (12-78) U/L Alkaline Phosphatase 99 (45-117) U/L Total Protein 6.0 L (6.4-8.2) gm/dl Albumin 2.2 L (3.4-5.0) gm/dl Globulin 3.8 (2.5-4.0) gm/dl Albumin/Globulin Ratio 0.6 L (0.9-2) E. chaffeensis IgG Ab (<1:64) E. chaffeensis IgM Ab (<1:20) E. chaffeensis Interp E. chaffeensis Comment Hepatitis A IgM Ab (NON-REACTIVE) Hep B Core IgM Ab (NON-REACTIVE) 08/30/19 08/29/19 08/29/19 Range/Units 06:18 20:30 15:57 WBC 4.52 L (4.8-10.8) K/uL RBC 3.82 L (4.2-5.4) M/uL Hgb 10.4 L (12.0-16.0) g/dL Hct 30.8 L (37-47) % MCV 80.6 (80-100) fL MCH 27.2 (25-34) pg MCHC 33.8 (32-36) g/dL RDW Std Deviation 42.5 (36.4-46.3) fL RDW Coeff of Mary 14.6 H (11.5-14.5) % Plt Count 94 L (130-400) K/uL MPV 10.6 H (7.4-10.4) fL Immature Gran % (Auto) 0.7 % Neut % (Auto) 48.2 % Lymph % (Auto) 36.7 % Emmons % (Auto) 9.5 % Eos % (Auto) 4.2 % Baso % (Auto) 0.7 % Immature Gran # (Auto) 0.03 H (0.00-0.02) K/uL Neut # (Auto) 2.18 (1.4-6.5) K/uL Lymph # (Auto) 1.66 (1.2-3.4) K/uL Emmons # (Auto) 0.43 (0.11-0.59) K/uL Eos # (Auto) 0.19 (0-0.5) K/uL Baso # (Auto) 0.03 (0-0.2) K/uL APTT (21.0-31.0) Seconds PTT Ratio Sodium (136-145) mmol/L Potassium (3.5-5.1) mmol/L Chloride (98-107) mmol/L Carbon Dioxide (21-32) mmol/L Anion Gap (3-11) BUN (7-18) mg/dl Creatinine (0.6-1.2) mg/dl Est Cr Clr Drug Dosing ml/min Est GFR ( Amer) Est GFR (Non-Af Amer) BUN/Creatinine Ratio (10-20) Glucose (70-99) mg/dl POC Glucose 163 H 189 H (70-99) mg/dl Calcium (8.5-10.1) mg/dl Phosphorus (2.5-4.9) mg/dl Magnesium (1.8-2.4) mg/dl Total Bilirubin (0.2-1) mg/dl AST (15-37) U/L ALT (12-78) U/L Alkaline Phosphatase (45-117) U/L Total Protein (6.4-8.2) gm/dl Albumin (3.4-5.0) gm/dl Globulin (2.5-4.0) gm/dl Albumin/Globulin Ratio (0.9-2) E. chaffeensis IgG Ab (<1:64) E. chaffeensis IgM Ab (<1:20) E. chaffeensis Interp E. chaffeensis Comment Hepatitis A IgM Ab (NON-REACTIVE) Hep B Core IgM Ab (NON-REACTIVE) 08/29/19 08/29/19 08/26/19 Range/Units 14:33 11:23 18:37 WBC (4.8-10.8) K/uL RBC (4.2-5.4) M/uL Hgb (12.0-16.0) g/dL Hct (37-47) % MCV (80-100) fL MCH (25-34) pg MCHC (32-36) g/dL RDW Std Deviation (36.4-46.3) fL RDW Coeff of Mary (11.5-14.5) % Plt Count (130-400) K/uL MPV (7.4-10.4) fL Immature Gran % (Auto) % Neut % (Auto) % Lymph % (Auto) % Emmons % (Auto) % Eos % (Auto) % Baso % (Auto) % Immature Gran # (Auto) (0.00-0.02) K/uL Neut # (Auto) (1.4-6.5) K/uL Lymph # (Auto) (1.2-3.4) K/uL Emmons # (Auto) (0.11-0.59) K/uL Eos # (Auto) (0-0.5) K/uL Baso # (Auto) (0-0.2) K/uL APTT 48.0 H* (21.0-31.0) Seconds PTT Ratio 1.7 Sodium (136-145) mmol/L Potassium (3.5-5.1) mmol/L Chloride (98-107) mmol/L Carbon Dioxide (21-32) mmol/L Anion Gap (3-11) BUN (7-18) mg/dl Creatinine (0.6-1.2) mg/dl Est Cr Clr Drug Dosing ml/min Est GFR ( Amer) Est GFR (Non-Af Amer) BUN/Creatinine Ratio (10-20) Glucose (70-99) mg/dl POC Glucose 247 H (70-99) mg/dl Calcium (8.5-10.1) mg/dl Phosphorus (2.5-4.9) mg/dl Magnesium (1.8-2.4) mg/dl Total Bilirubin (0.2-1) mg/dl AST (15-37) U/L ALT (12-78) U/L Alkaline Phosphatase (45-117) U/L Total Protein (6.4-8.2) gm/dl Albumin (3.4-5.0) gm/dl Globulin (2.5-4.0) gm/dl Albumin/Globulin Ratio (0.9-2) E. chaffeensis IgG Ab <1:64 (<1:64) E. chaffeensis IgM Ab <1:20 (<1:20) E. chaffeensis Interp see note E. chaffeensis Comment see note Hepatitis A IgM Ab NON-REACTIVE (NON-REACTIVE) Hep B Core IgM Ab NON-REACTIVE (NON-REACTIVE)
[2019-08-30 10:03] LABS: EBV Virus Capsid Ag IgG Ab >750.00 U/mL; Epstein Barr Virus Early Ag Ab <9.00 U/mL
[2019-08-30] MEDS ORDERED: dilTIAZem HCL 30 MG TAB PO ONE (10:44)
--- NOTE | 2019-08-30 12:28 | Cardiology Progress Note ---
Date of Service August 30, 2019 Assessment & Plan (1) S/P TAVR (transcatheter aortic valve replacement): (2) CAD (coronary artery disease): (3) Acute hepatitis: (4) Tuywl-br-dhmdbej kidney injury: (5) Anaplasmosis: (6) Elevated troponin: 89-year-old woman with past medical history of TAVR placement for severe aortic stenosis and nonobstructive coronary artery disease presents to [facility] with anaplasmosis sepsis. She did go into atrial fibrillation with rapid ventricular response on the . She has been started on a diltiazem drip along with heparin anticoagulation and her rates are now well controlled. My hope is that with further treatment that she will go back into normal sinus rhythm. I will start her on low-dose metoprolol p.o. every 6 hours now and attempt to titrate off the Cardizem drip. Consideration may be given to initiation of antiarrhythmic therapy, however, would prefer to hold off until she has returned to baseline clinically. Unclear if she is a long-term anticoagulation candidate at this time will have to discuss options with family. Given the acute hepatitis I would be hesitant to start warfarin and given her age and dementia I do not believe she would be a good candidate for DOAC therapy. If she is a candidate for anticoagulation then consideration may be given to DC cardioversion while an inpatient and then 30 days of anticoagulation to follow- up. Drip was turned off overnight with rates down in the 40s but now elevated this a.m. We will give an extra dose of p.o. Cardizem and follow rates for now. I would prefer that her heart rates run on the higher side rather than the lower and risk the need for permanent pacemaker placement. Continue to monitor on telemetry. Subjective Patient seen and examined, chart reviewed. States that she has been feeling well and her strength continues to improve. Denies any chest pain, shortness of breath, palpitations, lightheadedness, dizziness or syncope. Telemetry reviewed: Atrial fibrillation with variable rate response into the 40s overnight and 1 teens during the day. Review of Systems Review of Systems: All systems reviewed & are unremarkable except as noted in HPI & below Physical Exam Physical Exam: General: Awake, alert and oriented x 3. No acute distress. HEENT: Normocephalic, atraumatic. Pupils equal, round and reactive to light and accommodation. Extraocular muscles are intact. Anicteric sclera. Moist mucous membranes. Neck: No JVD. No bruit. Cardiovascular: irregularly irregular, unable to appreciate murmur, rub or gallop. Pulmonary: Clear to auscultation bilaterally. No rales, rhonchi, or wheezing. Abdomen: Bowel sounds x 4, soft. No rebound, guarding or tenderness. No organomegaly. Extremities: No clubbing, cyanosis or edema. +2 pedal pulses bilaterally. Skin: Warm and dry. Results & Data Vital Signs (Past 12 Hours) Vital Signs Temp Pulse Pulse Resp BP Pulse Ox 08/30/19 11:35 36.7 C 119 H 18 135/85 96 08/30/19 07:51 36.7 C 107 H 18 153/82 H 96 08/30/19 03:43 36.5 C 107 H 19 146/87 H 94
[2019-08-30 14:22] LABS: Partial Thromboplastin Ratio 1.3; Partial Thromboplastin Time 35.9 Seconds (21.0-31.0)
[2019-08-30] MEDS: cefTRIAXone SODIUM 2,000 MG in DEXTROSE 5% 50 ML IV SCH (15:00)
[2019-08-30 22:09] LABS: Partial Thromboplastin Ratio 2.8
[2019-08-30 22:15] LABS: Partial Thromboplastin Time 76.9 Seconds (21.0-31.0)
[2019-08-31] MEDS: METOPROLOL TARTRATE 25 MG TAB PO SCH ×2 (00:06→05:53)
[2019-08-31 04:29] LABS: Basophils # (auto) 0.03 K/uL (0-0.2); Basophils % (auto) 0.6 %; Eosinophils % (auto) 3.7 %; Hematocrit (blood only) 29.9 % (37-47); Immature Granulocytes # (auto) 0.06 K/uL (0.00-0.02); Immature Granulocytes % (auto) 1.1 %; Lymphocytes # (auto) 1.89 K/uL (1.2-3.4); Lymphocytes % (auto) 35.1 %; Mean Corpuscular Hemoglobin 27.2 pg (25-34); Mean Corpuscular Hgb Conc 33.4 g/dL (32-36); Mean Corpuscular Volume 81.5 fL (80-100); Mean Platelet Volume 10.1 fL (7.4-10.4); Monocytes # (auto) 0.45 K/uL (0.11-0.59); Monocytes % (auto) 8.3 %; Neutrophils # (auto) 2.76 K/uL (1.4-6.5); Neutrophils % (auto) 51.2 %; Platelet Count 113 K/uL (130-400); RDW Coefficient of Variation 14.7 % (11.5-14.5); RDW Standard Deviation 43.6 fL (36.4-46.3); Red Blood Count 3.67 M/uL (4.2-5.4); White Blood Count 5.39 K/uL (4.8-10.8)
[2019-08-31 04:49] LABS: Partial Thromboplastin Ratio 1.7
[2019-08-31 04:56] LABS: BUN Creatinine Ratio 18.5 (10-20); Calcium 8.1 mg/dl (8.5-10.1); Creatinine Clr Calc Pharmacy 22.1 ml/min; Est GFR (African American) 27.1; Est GFR (Non-African American) 23.4; Magnesium 1.9 mg/dl (1.8-2.4)
[2019-08-31 05:23] LABS: Partial Thromboplastin Time 47.1 Seconds (21.0-31.0)
[2019-08-31] MEDS: HEPARIN SODIUM/DEXTROSE 25,000 UNITS/500 ML BAG IV SCH (05:55)
[2019-08-31] MEDS: dilTIAZem HCL 30 MG TAB PO SCH (07:51)
[2019-08-31] MEDS: SERTRALINE HCL 50 MG TABLET PO SCH (07:51)
[2019-08-31] MEDS: MAGNESIUM OXIDE 400 MG TAB PO SCH (07:51)
[2019-08-31] MEDS: DOXYCYCLINE HYCLATE 100 MG CAP PO SCH ×2 (07:51→20:54)
[2019-08-31] MEDS: PANTOprazole 40 MG TAB PO SCH (07:51)
[2019-08-31] MEDS: GABAPENTIN 300 MG CAP PO SCH ×3 (07:51→20:54)
[2019-08-31] MEDS: DONEPEZIL HCL 10 MG TAB PO SCH (07:51)
[2019-08-31] MEDS: ARTIFICIAL TEARS OPB SCH ×4 (07:52→20:54)
[2019-08-31] MEDS: INSULIN ASPART 100 UNITS/ML 3 ML PEN SC SCH ×4 (07:53→20:55)
--- NOTE | 2019-08-31 12:40 | Cardiology Progress Note ---
Date of Service August 31, 2019 Assessment & Plan (1) S/P TAVR (transcatheter aortic valve replacement): (2) CAD (coronary artery disease): (3) Acute hepatitis: (4) Yyavw-oi-nacmipd kidney injury: (5) Anaplasmosis: (6) Elevated troponin: 89-year-old woman with past medical history of TAVR placement for severe aortic stenosis and nonobstructive coronary artery disease presents to [facility] with anaplasmosis sepsis. She did go into atrial fibrillation with rapid ventricular response on the . She has been started on a diltiazem drip along with heparin anticoagulation and her rates are now well controlled. Rates remain elevated so at this time will change metoprolol to 50 mg of succinate p.o. daily as well as Cardizem CD 240 mg p.o. daily. We will continue to monitor her rates overnight and adjust medications as necessary. Unclear if she is a long-term anticoagulation candidate at this time will have to discuss options with family. Given the acute hepatitis I would be hesitant to start warfarin and given her age and dementia I do not believe she would be a good candidate for DOAC therapy. Continue to monitor on telemetry. Subjective Patient seen and examined, chart reviewed. States that she has been feeling well and her strength continues to improve. Denies any chest pain, shortness of breath, palpitations, lightheadedness, dizziness or syncope. Telemetry reviewed: Atrial fibrillation with rapid ventricular response. Review of Systems Review of Systems: All systems reviewed & are unremarkable except as noted in HPI & below Physical Exam Physical Exam: General: Awake, alert and oriented x 3. No acute distress. HEENT: Normocephalic, atraumatic. Pupils equal, round and reactive to light and accommodation. Extraocular muscles are intact. Anicteric sclera. Moist mucous membranes. Neck: No JVD. No bruit. Cardiovascular: irregularly irregular, unable to appreciate murmur, rub or gallop. Pulmonary: Clear to auscultation bilaterally. No rales, rhonchi, or wheezing. Abdomen: Bowel sounds x 4, soft. No rebound, guarding or tenderness. No organomegaly. Extremities: No clubbing, cyanosis or edema. +2 pedal pulses bilaterally. Skin: Warm and dry. Results & Data Vital Signs (Past 12 Hours) Vital Signs Temp Pulse Pulse Pulse Resp BP Pulse Ox 08/31/19 12:05 36.5 C 123 H 18 131/80 98 08/31/19 08:00 121 H 08/31/19 07:57 36.6 C 116 H 19 159/96 H 95 08/31/19 03:58 36.5 C 112 H 19 159/97 H 95
[2019-08-31] MEDS ORDERED: METOPROLOL SUCC 50MG EXT REL TAB PO ONE (12:45)
[2019-08-31] MEDS: dilTIAZem HCL 240 MG CAPCR PO SCH (13:59)
--- NOTE | 2019-08-31 14:40 | Hospitalist Progress Note ---
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 We will monitor while in the hospital We will hold off any pharmacologic anticoagulation for now due to thrombus cytopenia Platelet count remains around 60s with leukopenia-borderline Platelet counts have been improving (5) Fever: No definite pneumonia but may have pneumonitis We will continue with intravenous antibiotic for now Has had fever last night of 38 F No more fever since yesterday (6) Acute hepatitis: Has significant transaminitis without any obstructive features Appreciate GI input and recommendation LFTs are seems to be improving Avoid any medications that can impair liver function Liver functions have been improving Awaiting further test results-serological tests are pending (7) Guvkl-ob-tbmkqoa kidney injury: Patient with CKD III historically. Creatinine slightly worse than baseline. 1.5--> 1.88 today. Gentle IV Hydration. Continue to monitor I&Os. Possibly due to current illness. Check Urine culture. Hold Celebrex- feel that this likely should be discontinued on discharge. Kidney function has not improved yet Advised more fluid intake Renal function has been worsening with creatinine at 2.39 today Advised to drink more fluid and will give more intravenous fluid Creatinine is better today with level of 2.19 and is improved (8) Troponin level elevated: Doubt any acute cardiac injury and/or ACS Mild elevation of troponin could be secondary to renal impairment Patient denies any cardiac symptoms (9) SOB (shortness of breath): No definite pneumonia and/or CHF on CAT scan Has questionable groundglass opacities Shortness of breath has been improving Will need follow-up imaging studies for lung lesions (10) Weakness: (11) Lesion of right [place] kidney: Strong family history of Renal Cell CA. 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 (12) Recurrent falls: (13) Pulmonary lesion: (14) Ground glass opacity present on imaging of lung: Patient does not have history of tobacco use. Uncertain etiology of pulmonary 1 cm lesion. With ground glass opacity, fever, weakness, and SOB, will start IV CTX prophylactically as well for possible CAP. COVID negative. Continue PRN O2 to maintain SaO2 >88%. (15) T2DM (type 2 diabetes mellitus): Hold sitagliptin. Insulin protocol. (16) HTN (hypertension): Hold Olmesartan. Continue amlodipine. Blood pressure remains in the lower side of normal We will continue holding olmesartan (17) Dementia: (18) GERD (gastroesophageal reflux disease): Continue omeprazole. (19) Cervical stenosis of spinal canal: Seems unlikely to be causing current symptoms. Follow up as needed as outpatient. Patient's daughter, Jonelle is POElena. Phone number is [phone]. Updating her daughter almost daily (20) Renal mass: Admission and Anticipated Discharge Date Admission Date: August 26, 2019 Subjective The patient was seen and examined in ICU She has been feeling better since admission Remains weak and lethargic 08/28/2019 The patient was seen and examined in telemetry unit She went into A. fib with RVR last night and required Cardizem drip and heparin drip She has a significant cardiac history including TAVR Denies any chest pain and no palpitation Clinically feeling a lot better 08/29/2019 The patient was seen and examined in telemetry unit plan He has been feeling much better today and denies any significant symptoms except weakness Heart heart rate seems to be under control 08/30/2019 The patient was seen and examined in telemetry unit Still having increased heart rate without any significant symptom Will start PT and OT evaluation Review of Systems Review of Systems: All systems reviewed and are unremarkable except as noted below Constitutional: + body aches, + fatigue and + weakness Musculoskeletal: Generalized aches and pains and neck pain Neurologic: + headache(s) Physical Exam Physical Exam: Lying in bed comfortably Constitutional: well developed, well nourished and + obese; no acute distress and not ill appearing Eyes: PERRL, conjunctivae normal, anicteric sclerae ENMT: external ear and nose normal, oropharynx normal Neck: trachea midline, no thyromegaly Respiratory: normal respiratory effort; no respiratory distress Auscultation: lungs clear to auscultation bilaterally Cardiovascular: Rate/Rhythm: + irregularly irregular Heart Sounds: no murmur Gastrointestinal (Abdomen): Inspection/Auscultation: abdomen normal to inspection; abdomen not distended Percussion/Palpation: abdomen soft; abdomen nontender Skin: no rashes Neurologic: moves all extremities; no focal motor deficits Lymphatic: no cervical or axillary lymphadenopathy Results & Data Results & Data ([facility]) Vital Signs (Past 12 Hours) Vital Signs Temp Pulse Pulse Pulse Resp BP Pulse Ox 08/31/19 12:05 36.5 C 123 H 18 131/80 98 08/31/19 08:00 121 H 08/31/19 07:57 36.6 C 116 H 19 159/96 H 95 08/31/19 03:58 36.5 C 112 H 19 159/97 H 95
--- NOTE | 2019-08-31 14:47 | Hospitalist Progress Note ---
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 Clinically a lot better and has been getting PT and OT (2) Atrial fibrillation with rapid ventricular response: Has history of PAF Noted to be in A. 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 We will monitor while in the hospital We will hold off any pharmacologic anticoagulation for now due to thrombus cytopenia Platelet count remains around 60s with leukopenia-borderline Platelet counts have been improving Platelet counts have been almost normalized (5) Fever: No definite pneumonia but may have pneumonitis We will continue with intravenous antibiotic for now Has had fever last night of 38 F No more fever (6) Acute hepatitis: Has significant transaminitis without any obstructive features Appreciate GI input and recommendation LFTs are seems to be improving Avoid any medications that can impair liver function Liver functions have been improving Awaiting further test results-serological tests are pending Liver functions have been normalized (7) Gsrrc-gn-ztddoko kidney injury: Patient with CKD III historically. Creatinine slightly worse than baseline. 1.5--> 1.88 today. Gentle IV Hydration. Continue to monitor I&Os. Possibly due to current illness. Check Urine culture. Hold Celebrex- feel that this likely should be discontinued on discharge. Kidney function has not improved yet Advised more fluid intake Renal function has been worsening with creatinine at 2.39 today Advised to drink more fluid and will give more intravenous fluid Creatinine is better today with level of 2.19 and is improved Creatinine has been improved to 1.87 (8) Troponin level elevated: Doubt any acute cardiac injury and/or ACS Mild elevation of troponin could be secondary to renal impairment Patient denies any cardiac symptoms (9) SOB (shortness of breath): No definite pneumonia and/or CHF on CAT scan Has questionable groundglass opacities Shortness of breath has been improving Will need follow-up imaging studies for lung lesions (10) Weakness: (11) Lesion of right [place] kidney: Strong family history of Renal Cell CA. Appreciate urology input and recommendation Will get ultrasound of the renal system to evaluate the lesion further Ultrasound showed-Probable urothelial lesion of the right renal pelvis is redem onstrated along with right renal atrophy and right hydroureteronephrosis. (12) Recurrent falls: (13) Pulmonary lesion: (14) Ground glass opacity present on imaging of lung: Patient does not have history of tobacco use. Uncertain etiology of pulmonary 1 cm lesion. With ground glass opacity, fever, weakness, and SOB, will start IV CTX prophylactically as well for possible CAP. COVID negative. Continue PRN O2 to maintain SaO2 >88%. (15) T2DM (type 2 diabetes mellitus): Hold sitagliptin. Insulin protocol. (16) HTN (hypertension): Hold Olmesartan. Continue amlodipine. Blood pressure remains in the lower side of normal We will continue holding olmesartan (17) Dementia: (18) GERD (gastroesophageal reflux disease): Continue omeprazole. (19) Cervical stenosis of spinal canal: Seems unlikely to be causing current symptoms. Follow up as needed as outpatient. Patient's daughter, Jonelle is ISAIAS. Phone number is [phone]. Updating her daughter almost daily (20) Renal mass: Admission and Anticipated Discharge Date Admission Date: August 26, 2019 Subjective The patient was seen and examined in ICU She has been feeling better since admission Remains weak and lethargic 08/28/2019 The patient was seen and examined in telemetry unit She went into A. fib with RVR last night and required Cardizem drip and heparin drip She has a significant cardiac history including TAVR Denies any chest pain and no palpitation Clinically feeling a lot better 08/29/2019 The patient was seen and examined in telemetry unit plan He has been feeling much better today and denies any significant symptoms except weakness Heart heart rate seems to be under control 08/30/2019 The patient was seen and examined in telemetry unit Still having increased heart rate without any significant symptom Will start PT and OT evaluation 08/31/2019 The patient was seen and examined in telemetry unit She has been out of bed on a chair and feeling much better Complains today of weakness Denies any palpitation, shortness of breath or chest pain Review of Systems Review of Systems: All systems reviewed and are unremarkable except as noted below Constitutional: + fatigue and + weakness Musculoskeletal: Generalized aches and pains and neck pain Neurologic: no headache(s) Physical Exam Physical Exam: Sitting on a chair without any acute symptoms Constitutional: well developed, well nourished, + ill appearing and + obese; no acute distress Eyes: PERRL, conjunctivae normal, anicteric sclerae ENMT: external ear and nose normal, oropharynx normal Neck: trachea midline, no thyromegaly Respiratory: normal respiratory effort; no respiratory distress Auscultation: lungs clear to auscultation bilaterally Cardiovascular: Rate/Rhythm: + irregularly irregular Heart Sounds: no murmur Extremities: + edema (Trace to 1+ bilateral) Gastrointestinal (Abdomen): Inspection/Auscultation: abdomen normal to inspection; abdomen not distended Percussion/Palpation: abdomen soft; abdomen nontender Musculoskeletal: No acute arthritis involving any joints Skin: no rashes Neurologic: moves all extremities; no focal motor deficits Alert, awake and oriented x3 Lymphatic: no cervical or axillary lymphadenopathy Results & Data Results & Data ([facility]) Vital Signs (Past 12 Hours) Vital Signs Temp Pulse Pulse Pulse Resp BP Pulse Ox 08/31/19 12:05 36.5 C 123 H 18 131/80 98 08/31/19 08:00 121 H 08/31/19 07:57 36.6 C 116 H 19 159/96 H 95 08/31/19 03:58 36.5 C 112 H 19 159/97 H 95 Laboratory Results Short CBC 08/31/19 Range/Units 04:10 WBC 5.39 (4.8-10.8) K/uL Hgb 10.0 L (12.0-16.0) g/dL Hct 29.9 L (37-47) % Plt Count 113 L (130-400) K/uL BMP 08/31/19 04:10 Sodium 139 Potassium 4.0 Chloride 107 Carbon Dioxide 25 BUN 35 H Creatinine 1.87 H Glucose 143 H Calcium 8.1 L Medications Administered Current Inpatient Medications Acetaminophen (Tylenol) 1,000 mg PO Q8H PRN PRN Reason: Fever Stop: 09/26/19 10:51 Last Admin: 08/27/19 22:32 Dose: 1,000 mg Documented by: Amlodipine Besylate (Norvasc) 10 mg PO DAILY [facility] Stop: 09/26/19 08:59 Last Admin: 08/29/19 07:59 Dose: 10 mg Documented by: Artificial Tears (Artificial Tears) 1 drops OPB QID [facility] Stop: 09/28/19 16:59 Last Admin: 08/31/19 13:59 Dose: 1 drops Documented by: Dextrose (Dextrose 50%) 25 - 50 ml IV UD PRN; Protocol PRN Reason: Hypoglycemia Protocol Stop: 09/25/19 18:17 Diltiazem HCl (Cardizem Cd) 240 mg PO QAM [facility] Stop: 09/30/19 12:44 Last Admin: 08/31/19 13:59 Dose: 240 mg Documented by: Donepezil HCl (Aricept) 10 mg PO DAILY [facility] Stop: 09/26/19 08:59 Last Admin: 08/31/19 07:51 Dose: 10 mg Documented by: Doxycycline Hyclate (Vibramycin) 100 mg PO BID [facility] Stop: 09/02/19 20:59 Last Admin: 08/31/19 07:51 Dose: 100 mg Documented by: Gabapentin (Neurontin) 300 mg PO TID [facility] Stop: 09/26/19 13:59 Last Admin: 08/31/19 13:59 Dose: 300 mg Documented by: Glucagon (Glucagen) 1 mg SQ UD PRN; Protocol PRN Reason: Hypoglycemia Protocol Stop: 09/25/19 18:17 Glucose (Dex4 Glucose) 4 - 8 tabs PO UD PRN; Protocol PRN Reason: Hypoglycemia Protocol Stop: 09/25/19 18:17 Glucose (Glucose 40%) 15 - 30 gm PO UD PRN; Protocol PRN Reason: Hypoglycemia Protocol Stop: 09/25/19 18:17 Ceftriaxone Sodium 2,000 mg/ (Dextrose) 50 mls @ 100 mls/hr IV Q24H [facility]; Protocol Stop: 09/02/19 15:59 Last Infusion: 08/30/19 15:30 Dose: Infused Documented by: Diltiazem HCl 125 mg/ Dextrose 125 mls @ 0 mls/hr IV .Q0M [facility]; Protocol Stop: 09/26/19 22:44 Last Admin: 08/30/19 00:23 Dose: Not Given Documented by: Heparin Sodium/Dextrose (Heparin Sodium/Dextrose) 25,000 units in 500 mls @ 18 mls/hr IV .Q24H [facility]; Protocol Stop: 09/26/19 22:44 Last Titration: 08/31/19 06:59 Dose: 900 units/hr, 18 mls/hr Documented by: Insulin Aspart (Novolog Flexpen) 0 units SC ACHS WIL Stop: 09/25/19 20:59 Last Admin: 08/31/19 12:15 Dose: 2 units Documented by: Magnesium Oxide (Mag-Ox) 400 mg PO DAILY [facility] Stop: 09/26/19 08:59 Last Admin: 08/31/19 07:51 Dose: 400 mg Documented by: Metoprolol Succinate (Toprol Xl) 50 mg PO QAM [facility] Stop: 10/01/19 08:59 Miscellaneous (Carbohydrates For Hypoglycemia) 15 - 30 gm PO UD PRN PRN Reason: Hypoglycemia Protocol Stop: 09/25/19 18:17 Ondansetron HCl (Zofran) 4 mg IV Q6H PRN PRN Reason: Nausea Stop: 09/25/19 16:08 Pantoprazole Sodium (Protonix) 40 mg PO DAILY [facility] Stop: 09/26/19 08:59 Last Admin: 08/31/19 07:51 Dose: 40 mg Documented by: Sertraline HCl (Zoloft) 150 mg PO DAILY [facility] Stop: 09/26/19 08:59 Last Admin: 08/31/19 07:51 Dose: 150 mg Documented by:
[2019-08-31] MEDS: cefTRIAXone SODIUM 2,000 MG in DEXTROSE 5% 50 ML IV SCH (16:52)
[2019-08-31] MEDS ORDERED: dilTIAZem HCL 30 MG TAB PO ONE (17:08)
[2019-09-01 05:50] LABS: Alpha 1 Antitrypsin 195 mg/dL (83-199); Anti Nuclear Antibody Screen POSITIVE (NEGATIVE); CMV IgG Antibody 0.93 U/mL; CMV IgM Antibody <30.00 AU/mL; Ceruloplasmin 35 mg/dL (18-53); Herpes Simplex Ab IgG-1 <0.90 index; Parvovirus IgG 4.7 (<0.9); Parvovirus IgM 0.1 (<0.9); Smooth Muscle Antibody NEGATIVE (NEGATIVE)
[2019-09-01 06:52] LABS: Partial Thromboplastin Ratio 1.6; Partial Thromboplastin Time 44.3 Seconds (21.0-31.0)
[2019-09-01 06:58] LABS: Hematocrit (blood only) 30.4 % (37-47); Hemoglobin 9.9 g/dL (12.0-16.0); Mean Corpuscular Hgb Conc 32.6 g/dL (32-36); Mean Corpuscular Volume 83.1 fL (80-100); Mean Platelet Volume 10.3 fL (7.4-10.4); Platelet Count 135 K/uL (130-400); RDW Coefficient of Variation 14.8 % (11.5-14.5); RDW Standard Deviation 44.2 fL (36.4-46.3); Red Blood Count 3.66 M/uL (4.2-5.4); White Blood Count 6.39 K/uL (4.8-10.8)
[2019-09-01] MEDS: METOPROLOL TARTRATE 25 MG TAB PO SCH (07:13)
[2019-09-01] MEDS: HEPARIN SODIUM/DEXTROSE 25,000 UNITS/500 ML BAG IV SCH ×2 (08:15→09:07)
[2019-09-01] MEDS: DOXYCYCLINE HYCLATE 100 MG CAP PO SCH (08:16)
[2019-09-01] MEDS: MAGNESIUM OXIDE 400 MG TAB PO SCH (08:16)
[2019-09-01] MEDS: PANTOprazole 40 MG TAB PO SCH (08:16)
[2019-09-01] MEDS: SERTRALINE HCL 50 MG TABLET PO SCH (08:16)
[2019-09-01] MEDS: dilTIAZem HCL 240 MG CAPCR PO SCH (08:17)
[2019-09-01] MEDS: GABAPENTIN 300 MG CAP PO SCH (08:17)
[2019-09-01] MEDS: DONEPEZIL HCL 10 MG TAB PO SCH (08:17)
[2019-09-01] MEDS: ARTIFICIAL TEARS OPB SCH ×2 (08:18→13:17)
[2019-09-01] MEDS: INSULIN ASPART 100 UNITS/ML 3 ML PEN SC SCH (08:18)
[2019-09-01] MEDS ORDERED: HEPARIN IV BOLUS 3,000 UNITS in SYRINGE 0 ML IV ONE (08:30)
[2019-09-01] MEDS ORDERED: METOPROLOL SUCC 50MG EXT REL TAB PO SCH (09:00)
--- NOTE | 2019-09-01 10:52 | Hospitalist Progress Note ---
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 Last fever on August 26 Clinically a lot better and has been getting PT and OT Plan to discharge on doxycycline We will need to follow-up with PCP (2) Atrial fibrillation with rapid ventricular response: Has history of PAF Noted to be in A. 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 We will monitor while in the hospital We will hold off any pharmacologic anticoagulation for now due to thrombocytopenia Platelet count remains around 60s with leukopenia-borderline Platelet counts have been improving, almost normalized Follow-up as outpatient (5) Fever: No definite pneumonia but may have pneumonitis Continued with intravenous antibiotic for now Has had fever of 38 F on 08/26 Since then afebrile (6) Acute hepatitis: Has significant transaminitis without any obstructive features Appreciate GI input and recommendation LFTs improving Avoid any medications that can impair liver function Awaiting further test results-serological tests are pending Liver functions normalized (7) Foupv-op-hmhpnwp kidney injury: Patient with CKD III historically. Creatinine slightly worse than baseline. 1.5 (baseline) --> 2.39 --> 1.87 Gentle IV Hydration. Continue to monitor I&Os. Possibly due to current illness. Urine culture negative Hold Celebrex- feel that this likely should be discontinued on discharge. Advised more po fluid intake Creatinine has improved to 1.87 Follow-up with [facility] as outpatient (8) Troponin level elevated: Doubt any acute cardiac injury and/or ACS Mild elevation of troponin could be secondary to renal impairment Patient denies any cardiac symptoms (9) SOB (shortness of breath): No definite pneumonia and/or CHF on CAT scan Has questionable groundglass opacities Shortness of breath has been improving Will need follow-up imaging studies for lung lesions (10) Weakness: (11) Lesion of right [place] kidney: Strong family history of Renal Cell CA. 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 Urology consulted, obtained cytology, pathology results negative for high-grade urothelial carcinoma Further follow-up with urology recommended as outpatient (12) Recurrent falls: (13) Pulmonary lesion: (14) Ground glass opacity present on imaging of lung: Patient does not have history of tobacco use. Uncertain etiology of pulmonary 1 cm lesion. With ground glass opacity, fever, weakness, and SOB, will start IV CTX prophylactically as well for possible CAP. COVID negative. Continue PRN O2 to maintain SaO2 >88%. Patient is currently breathing comfortably on room air, saturating 95% (15) T2DM (type 2 diabetes mellitus): Hold sitagliptin. Insulin protocol. (16) HTN (hypertension): Hold Olmesartan. Continue amlodipine. Blood pressure now more elevated Continue BP meds (17) Dementia: (18) GERD (gastroesophageal reflux disease): Continue omeprazole. (19) Cervical stenosis of spinal canal: Seems unlikely to be causing current symptoms. Follow up as needed as outpatient. Patient's daughter, Jonelle is ISAIAS. Phone number is [phone]. (20) Renal mass: Admission and Anticipated Discharge Date Admission Date: August 26, 2019 Subjective Patient is currently working with PT, using her walker. Then she sits down and is in no acute distress. She denies any fevers, chills, chest pain, shortness of breath, abdominal pain, nausea or vomiting. She says she has a good appetite and no troubles with voiding or bowel movements, had bowel movement this morning. Discussed with her appointment tomorrow with cardiology as well as need for antibiotics and new medications for A. fib. Patient does not know her pharmacy, however confirmed with her daughter and medications were sent to [facility] in [place]. Review of Systems Review of Systems: All systems reviewed & are unremarkable except as noted in HPI & below Constitutional: no fever and no chills Respiratory: no cough and no dyspnea Cardiovascular: no chest pain and no palpitations Gastrointestinal: no abdominal pain, no nausea and no vomiting Physical Exam Physical Exam: Physical Exam: Elderly female, sitting in a chair without any acute symptoms Constitutional: well developed, well nourished, no acute distress Eyes: PERRL, EOMI, conjunctivae normal, anicteric sclerae ENMT: external ear and nose normal, oropharynx normal Neck: trachea midline, no thyromegaly Respiratory: normal respiratory effort; no respiratory distress Auscultation: lungs clear to auscultation bilaterally Cardiovascular: Rate/Rhythm: + irregularly irregular Heart Sounds: no murmur Extremities: + edema (Trace b/l) Gastrointestinal (Abdomen): Inspection/Auscultation: abdomen normal to inspection; abdomen not distended Percussion/Palpation: abdomen soft; abdomen nontender Musculoskeletal: Moves all extremities spontaneously and without difficulty Skin: Warm, dry no rashes Neurologic: moves all extremities; no focal motor deficits Alert, awake and oriented x3 Results & Data Results & Data ([facility]) Vital Signs (Past 12 Hours) Vital Signs Temp Pulse Pulse Pulse Resp BP Pulse Ox 09/01/19 08:00 122 H 09/01/19 07:15 36.5 C 126 H 19 184/92 H 95 09/01/19 03:44 36.6 C 122 H 19 146/84 H 93 08/31/19 23:48 36.5 C 96 H 19 145/76 H 92
--- NOTE | 2019-09-01 11:25 | Discharge Summary ---
Date of Service September 01, 2019 Admission HPI Per Admitting Provider Patient is an 89 yo female with history of DM Type II, HTN, Dyslipidemia, CKD III, Nonalcoholic fatty liver disease, dementia, chronic pain syndrome, DM Neuropathy, GERD, and history of renal stone 2 years ago who presented to the ED via [facility] with SOB and weakness. She had a fall in February during which she broke 5 ribs. She was undergoing PT after that to help improve her strength. This was put on hold during COVID. Over the past 2 months, she has been progressively becoming more weak, but her daughter states that she has become incredibly weak over the past 24-48 hours. She was unable to get out of bed and fell x 2. She has been in [facility] at a very small camp of her granddaughter's for about 1 week, and she was flown here because they were unable to get an ambulance back to the camp. She has not had any cough or SOB until the past 24 hours. The patient was placed on nonrebreather by EMS on the way to the hospital but the patient is currently saturating well on room air. The patient is currently comfortable. She did have a fever of 103 F per her daughter this morning prior to EMS arrival. She was given 2 Tylenol at home which did bring the fever down. The patient has no history of hepatitis or transaminase elevation from fatty liver disease. Her daughter also noted that she hadn't been urinating regularly over the past 24 hours- decreased urination. No hematuria. Patient had a mild headache this morning, but none now. She had mild dizziness associated with some nausea but none now. No dysphagia, chest pain, abdominal pain, V/D/C, rash, or peripheral edema. Since admission, the patient was noted to have severely elevated LFTs, thrombocytopenia, elevated LDH, negative COVID, groundglass opacities in the right lung, and possible calcific right renal lesion. Prior right rib fractures were noted on Chest/abdomen CT's, but no acute bony findings. Head CT was negative for acute findings. C spine CT showed spinal stenosis and DDD. Troponin was mildly elevated, but no acute EKG changes suggesting ischemia. Last outpatient lab testing done 04/30/19 showed AST 9, ALT 6, Alk Phos 60, Platelets 197, Hgb 12.2, A1C 7.6, Creatinine 1.5. Admission Exam Per Admitting Provider Physical exam, General: Elderly woman, alert, appears weak Eyes: PERRL, conjunctivae normal, not pale, anicteric sclerae, EOM intact bilaterally ENMT: External ear and nose normal, oropharynx normal Neck: Normal visual inspection, no swelling noted Respiratory: Normal respiratory effort, no respiratory distress, lungs clear to auscultation, no crackles and no wheezes Cardiovascular: Pulse is RRR. S1-2, no pedal edema Chest (Breasts): Chest: normal inspection of chest, mild tenderness over palpation of right lower rib cage and RUQ Gastrointestinal (Abdomen): Abdomen is not distended, soft, mild tenderness over RUQ and lower rib cage (likely related to previous rib fractures as patient reported she has been having the pain since her fall and rib fractures), no guarding, normal bowel sounds Musculoskeletal: No cyanosis or clubbing, no pedal edema Genitourinary: No CVA tenderness Skin: Some scab on right side of forehead (daughter reports patient usually picks on her skin) Neurologic: Alert and oriented to person, place and month, No focal weakness, sensation grossly intact, power is about 5/5 in both UE and 4/5 in both LE Psychiatric: Euthymic affect, no depressed affect Principal Diagnosis Anaplasmosis Atrial fibrillation with RVR Discharge Exam Physical Exam: Elderly female, sitting in a chair without any acute symptoms Constitutional: well developed, well nourished, no acute distress Eyes: PERRL, EOMI, conjunctivae normal, anicteric sclerae ENMT: external ear and nose normal, oropharynx normal Neck: trachea midline, no thyromegaly Respiratory: normal respiratory effort; no respiratory distress Auscultation: lungs clear to auscultation bilaterally Cardiovascular: Rate/Rhythm: + irregularly irregular Heart Sounds: no murmur Extremities: + edema (Trace b/l) Gastrointestinal (Abdomen): Inspection/Auscultation: abdomen normal to inspection; abdomen not distended Percussion/Palpation: abdomen soft; abdomen nontender Musculoskeletal: Moves all extremities spontaneously and without difficulty Skin: Warm, dry no rashes Neurologic: moves all extremities; no focal motor deficits Alert, awake and oriented x3 Discharge Data Allergies Allergy/AdvReac Type Severity Reaction Status Date / Time No Known Allergies Allergy Verified 08/26/19 16:55 Consultations 08/26/19 10:43 ED Decision to Admit Stat 08/26/19 18:18 Consult Gastroenterology Routine Consult Urology Routine 08/28/19 08:00 Consult Cardiology Routine Ordered Studies 08/26/19 08:38 CT cervical spine wo con Stat IMPRESSION: 1. No evidence of acute fracture or traumatic subluxation 2. Advanced multilevel degenerative changes with multilevel spinal stenosis which is severe at the C5-C6 level. CT head/brain wo con Stat Impression: No acute intracranial abnormality. Atrophy and microvascular ischemic changes. 08/26/19 08:41 CT abd pelvis wo con Stat IMPRESSION: 1. No acute posttraumatic abnormality identified within the abdomen or pelvis. 2. No acute fracture. Multiple remote right-sided rib fractures are noted. 3. Moderate right-sided renal atrophy and moderate hydronephrosis is noted along with a partially calcified heterogeneous lesion centered within the renal pelvis. Debris within the renal pelvis is noted along with associated urothelial thickening. Findings are suggestive of a urothelial lesion and follow-up with urology consultation is needed. 4. Trace pleural effusions. 5. Splenomegaly. 6. Additional findings as above. 08/26/19 08:47 CT chest wo con Stat IMPRESSION: 1. No acute traumatic process within the chest. 2. Old, healed right posterior rib fractures. 3. A focal 1 cm irregular density within the right upper lobe which could represent scarring or a pulmonary lesion. A [address] follow-up recommended for further evaluation. 4. A few scattered subcentimeter groundglass nodule within the right lung with the largest measuring 4 mm. These also bear watching future examinations. 5. Additional findings as described above. 08/29/19 10:21 US renal/blad retro comp Routine IMPRESSION: 1. Limited exam as above. 2. Probable urothelial lesion of the right renal pelvis is redemonstrated along with right renal atrophy and right hydroureteronephrosis. 3. Increased echogenicity of the bilateral kidneys suggests chronic medical renal disease. 4. Decompressed urinary bladder with Man catheter. Urology/cytology/pathology results FINAL DIAGNOSIS URINE (MONOLAYER SLIDE EVALUATION): - NEGATIVE FOR HIGH GRADE UROTHELIAL CARCINOMA COMMENT: Numerous red blood cells and red blood cell casts are present. Scattered hyaline casts are also noted. Hospital Course (1) Anaplasmosis: Presented with fever, generalized weakness and shortness of breath No definite history of tick bite Noted to have leukopenia with thrombocytopenia, anemia and transaminitis Blood film is positive for anaplasmosis Has been started on intravenous ceftriaxone and doxycycline Further improvement with improved weakness Denies any significant symptoms We will give a total of 10 days course of antibiotic with doxycycline after that date she has been afebrile. Last fever on August 26 Clinically a lot better and has been getting PT and OT Plan to discharge on doxycycline We will need to follow-up with PCP (2) Atrial fibrillation with rapid ventricular response: Has history of PAF Noted to be in A. fib with RVR on 08/26 Has been getting intravenous heparin and intravenous diltiazem Denies any symptoms Appreciate cardiology input and recommendation Now on Cardizem 240 and metoprolol succinate 50 Heart rate is not yet controlled Cardiac medications is being adjusted High risk for anticoagulation-we will discuss with the family members Per family, for now will defer anticoagulation Plan to follow-up with her radiation control health physicist tomorrow, September 01 (3) S/P TAVR (transcatheter aortic valve replacement): No acute symptoms (4) Thrombocytopenia: Leukopenia, anemia and thrombocytopenia seem to be secondary to anaplasmosis We will monitor while in the hospital We will hold off any pharmacologic anticoagulation for now due to thrombocytopenia Platelet count remains around 60s with leukopenia-borderline Platelet counts have been improving, almost normalized Follow-up as outpatient (5) Fever: No definite pneumonia but may have pneumonitis Continued with intravenous antibiotic for now Has had fever of 38 F on 08/26 Since then afebrile (6) Acute hepatitis: Has significant transaminitis without any obstructive features Appreciate GI input and recommendation LFTs improving Avoid any medications that can impair liver function Awaiting further test results-serological tests are pending Liver functions normalized (7) [id number] kidney injury: Patient with CKD III historically. Creatinine slightly worse than baseline. 1.5 (baseline) --> 2.39 --> 1.87 Gentle IV Hydration. Continue to monitor I&Os. Possibly due to current illness. Urine culture negative Hold Celebrex- feel that this likely should be discontinued on discharge. Advised more po fluid intake Creatinine has improved to 1.87 Follow-up with BMP as outpatient (8) Troponin level elevated: Doubt any acute cardiac injury and/or ACS Mild elevation of troponin could be secondary to renal impairment Patient denies any cardiac symptoms (9) SOB (shortness of breath): No definite pneumonia and/or CHF on CAT scan Has questionable groundglass opacities Shortness of breath has been improving Will need follow-up imaging studies for lung lesions (10) Weakness: (11) Lesion of right [place] kidney: Strong family history of Renal Cell CA. 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 Urology consulted, obtained cytology, pathology results negative for high-grade urothelial carcinoma Further follow-up with urology recommended as outpatient (12) Recurrent falls: (13) Pulmonary lesion: (14) Ground glass opacity present on imaging of lung: Patient does not have history of tobacco use. Uncertain etiology of pulmonary 1 cm lesion. With ground glass opacity, fever, weakness, and SOB, will start IV CTX prophylactically as well for possible CAP. COVID negative. Continue PRN O2 to maintain SaO2 >88%. Patient is currently breathing comfortably on room air, saturating 95% (15) T2DM (type 2 diabetes mellitus): Hold sitagliptin. Insulin protocol. (16) HTN (hypertension): Hold Olmesartan. Continue amlodipine. Blood pressure now more elevated Continue BP meds (17) Dementia: (18) GERD (gastroesophageal reflux disease): Continue omeprazole. (19) Cervical stenosis of spinal canal: Seems unlikely to be causing current symptoms. Follow up as needed as outpatient. Total Time Total Time Spent Total Time Spent (In Minutes): 40 Total Time Includes: Examination of the Patient, Discharge Planning, Medication Reconciliation and Communication With Other Providers Discharge Plan Discharge Items Patient Disposition: Home - Home Health Services Reason For Visit: SOB,WEAKNESS Discharge Diagnosis: Anaplasmosis Atrial fibrillation with RVR Activity: Per Instructions section Non-emergency contact: Primary Care Provider and Property Management Intern Call non-emergency contact if: you have any medication questions and your symptoms worsen Follow-up/Referrals: PCP,NO [Physician] - Diet: Carb Consistent or DM2 Diet Texture: Easy to Chew Addtl Attending Provider Instructions: For anaplasmosis, continue to take antibiotics (doxycycline) for next 6 days as prescribed. For atrial fibrillation, take metoprolol and Cardizem as prescribed. All these medications were sent to your pharmacy - [facility] in [place]. You have an appointment with your radiation control health physicist scheduled for tomorrow (6/18/20), make sure to make this appointment as your medications may be changed at that time. Also make sure that you follow-up with your primary care provider within 1 week and have your blood work checked, CBC, BMP, as these were abnormal. Pending Studies at Discharge: No Stand-Alone Forms: My [facility], Smoking Cessation Medications and DC Order Prescriptions: New doxycycline hyclate 100 mg Capsule 100 mg PO BID 6 Days Qty: 12 RF: 0 diltiazem HCl 240 mg Capsule,Extended Release 24hr 240 mg PO QAM 5 Days Qty: 5 RF: 0 metoprolol succinate 50 mg Tablet Extended Release 24 Hr 50 mg PO QAM 5 Days Qty: 5 RF: 0 Continued sitagliptin 100 mg Tablet 100 mg PO DAILY RF: 0 hydrocodone-acetaminophen 5-300 mg Tablet 1 tab PO DAILY RF: 0 donepezil 10 mg Tablet 10 mg PO DAILY RF: 0 sertraline 100 mg Tablet 150 mg PO DAILY RF: 0 amlodipine 5 mg Tablet 10 mg PO DAILY RF: 0 atorvastatin 40 mg Tablet 40 mg PO DAILY RF: 0 omeprazole 10 mg capsule,delayed release(DR/EC) 10 mg PO DAILY RF: 0 magnesium oxide 400 mg magnesium tablet 400 mg PO DAILY RF: 0 aspirin 81 mg Tablet,Delayed Release (Dr/Ec) 81 mg PO DAILY RF: 0 Refresh Tears 0.5 % Drops 1 drp OPHTHALMIC (EYE) QID RF: 0 olmesartan 40 mg tablet 20 mg PO DAILY RF: 0 Changed gabapentin 600 mg Tablet 300 mg PO TID Qty: 0 RF: 0 Discontinued celecoxib 200 mg Capsule 200 mg PO DAILY RF: 0 lorazepam 1 mg Tablet 0.5 mg PO DAILY RF: 0 Discharge Orders: Discharge Order (Routine); Ordered 09/01/19 Ordered By: Brad Lucas/Other Patient Handouts: Managing Type 2 Diabetes, Managing Diabetes: The A1C Test Admission Data Admit Date/Time: 08/26/19 12:28 Attending Provider: Brad Gannon Admit Provider: Daniella Dye I. Primary Care Provider: Dave Snyder Other Providers: Manuel Vizcarra ; Fany Vargas ; Az Blanton ; Daniella Dye I. ; Donavon Thompson ; Jamal Lange ; Kvng Robbins ; Bismark Flores ; Xavier Vail ; Juan Luis Kilgore ; Nicci Renteria ; Mckenzie Workman ; Johnson Max ; Sam Kaye
--- NOTE | 2019-09-01 11:54 | Cardiology Progress Note ---
Date of Service September 01, 2019 Assessment & Plan (1) S/P TAVR (transcatheter aortic valve replacement): (2) CAD (coronary artery disease): (3) Acute hepatitis: (4) [id number]-[id number] kidney injury: (5) Anaplasmosis: (6) Elevated troponin: 89-year-old woman with past medical history of TAVR placement for severe aortic stenosis and nonobstructive coronary artery disease presents to [facility] with anaplasmosis sepsis. She did go into atrial fibrillation with rapid ventricular response on the . She has been started on a diltiazem drip along with heparin anticoagulation and her rates are now well controlled. Rates remain elevated so at this time will change metoprolol to 50 mg of succinate p.o. daily as well as Cardizem CD 240 mg p.o. daily. We will continue to monitor her rates overnight and adjust medications as necessary. Family states that they do not wish to proceed with anticoagulation. Okay to discharge home from a cardiac standpoint with follow-up with her primary raw scales operator scheduled for tomorrow. Subjective Patient seen and examined, chart reviewed. States that she feels well is continue to work with physical therapy. Family would like to discharge her today and she has a follow-up appointment scheduled with her regular raw scales operator as an outpatient tomorrow. Patient denies any chest pain, shortness of breath, palpitations, lightheadedness, dizziness or syncope. Telemetry reviewed: Atrial fibrillation with variable rate response ranging from 50s to 120s. Review of Systems Review of Systems: All systems reviewed & are unremarkable except as noted in HPI & below Physical Exam Physical Exam: General: Awake, alert and oriented x 3. No acute distress. HEENT: Normocephalic, atraumatic. Pupils equal, round and reactive to light and accommodation. Extraocular muscles are intact. Anicteric sclera. Moist mucous membranes. Neck: No JVD. No bruit. Cardiovascular: irregularly irregular, unable to appreciate murmur, rub or gallop. Pulmonary: Clear to auscultation bilaterally. No rales, rhonchi, or wheezing. Abdomen: Bowel sounds x 4, soft. No rebound, guarding or tenderness. No organomegaly. Extremities: No clubbing, cyanosis or edema. +2 pedal pulses bilaterally. Skin: Warm and dry. Results & Data Vital Signs (Past 12 Hours) Vital Signs Temp Pulse Pulse Pulse Pulse Resp BP 09/01/19 11:38 36.9 C 126 H 79 123 H 18 131/80 09/01/19 11:20 36.9 C 79 18 09/01/19 08:00 122 H 09/01/19 07:15 36.5 C 126 H 19 09/01/19 03:44 36.6 C 122 H 19 BP Pulse Ox 09/01/19 11:38 155/83 H 95 09/01/19 11:20 155/83 H 95 09/01/19 08:00 09/01/19 07:15 184/92 H 95 09/01/19 03:44 146/84 H 93
[2019-09-02 14:26] LABS: ANA Pattern Nuclear, Speckled
== END 2019-09-01 14:53 | disposition home health service (06) | DRG 868 ==
LOC: ED 08:21 → 1E 12:28 → SUATTDRO 12:28 → 1E 17:13 → 2S 08-27 15:32